=== PATIENT | male | born 1970 | race Caucasian/White ===

== ENCOUNTER 2017-08-07 21:26 | Emergency (ER) | payer OTHER ==
[~2017-08-07] VITALS: Ht 185.4 cm; Wt 88.5 kg
[~2017-08-07 21:26] MED LIST: ABILIFY 10 MG10 MG PO; ALPRAZOLAM0.5 M4 PO; ASPIRIN EC81 M1 PO; ATIVAN1 M1 PO; BENICAR HCT 12.1 TA2 PO; BENICAR40 M1 PO; GABAPENTIN300 M2 PO; LORAZEPAM0.5 M1 PO; NEXIUM 40MG40 MG PO; PANTOPRAZOLE SO40 M1 PO; SUBOXONE 8 MG-1 EACH; XANAX1 MG PO
[2017-08-07 22:52] VITALS: BP 128/86
== END 2017-08-07 23:00 | disposition admitted as inpatient to this hospital (09) ==
LOC: ERH 21:26
DX: R51 Headache (principal)

== ENCOUNTER 2017-08-25 11:13 | Emergency (ER) | payer OTHER ==
[~2017-08-25] VITALS: Ht 185.4 cm; Wt 90.7 kg
[2017-08-25 11:25] VITALS: BP 157/101
--- NOTE | 2017-08-25 12:20 | ED GENERAL ADULT ---
History of Present Illness General Chief Complaint: General Adult Stated Complaint: PT HAD A PANIC ATTACK Source: patient Exam Limitations: no limitations Vital Signs & Intake/Output Vital Signs & Intake/Output Vital Signs Date Time Temp Pulse Resp B/P B/P Pulse O2 O2 Flow FiO2 Mean Ox Delivery Rate 08/25 1321 99 Room Air 08/25 1125 97.2 81 20 157/101 99 Room Air Room Air Allergies Coded Allergies: moxifloxacin (From AVELOX) (HIVES 06/22/17) Reconcile Medications Alprazolam 0.5 MG TABLET 1 TAB PO BIDP PRN ANXIETY Alprazolam (Xanax) 0.5 MG TABLET 1 TAB PO Q8 ANXIETY Aspirin (Ecotrin*) 81 MG TABLET.DR 1 TAB PO DAILY HEART/BLOOD (Reported) Buprenorphine HCl/Naloxone HCl (Suboxone 8 MG-2 MG Sl Film) (Unknown Strength) FILM (Unknown Dose) UNKNOWN (Reported) Gabapentin 300 MG CAPSULE 2 CAP PO 4XDAILY ANXIETY (Reported) Lorazepam 0.5 MG TABLET 1 TAB PO TIDPRN PRN ANXIETY (Reported) Olmesartan Medoxomil (Benicar) 40 MG TABLET 1 TAB PO DAILY BP (Reported) Pantoprazole Sodium 40 MG TABLET.DR 1 TAB PO DAILY GI (Reported) Triage Note: PT REPORTS DIAGNOSIS OF PAINC DISORDER IN JUNE. REPORTS BEING UNABLE TO EAT OR SLEEP SINCE SUNDAY. DENIES SI/HI. PT CHIEF COMPLAINT IS DIFFICULTY URINATING. REPORTS HE CAN'T EMPTY HIS BLADDER AND FEELS A LOT OF PRESSURE. I Triage Nurses Notes Reviewed? yes Onset: Abrupt Duration: day(s): Timing: recent history HPI: 08/25/17 1 PM 47-year-old man presents to the emergency department for a panic attack. He says he has a history of panic attacks. He says he was doing good but he recently had some bad news. He denies any chest pain or shortness of breath. He does say he has a past medical history of hypertension. Past History Travel History Traveled to [place] past 21 day No Medical History Any Pertinent Medical History? see below for history Neurological: NONE EENT: NONE Cardiovascular: hypertension Respiratory: NONE Gastrointestinal: GERD Hepatic: NONE Renal: NONE Musculoskeletal: chronic back pain Psychiatric: anxiety, opioid dependence Endocrine: NONE History of MRSA: No History of VRE: No History of CDIFF: No Surgical History Surgical History: non-contributory Psychosocial History Services at Home None What is your primary language Turkish Tobacco Use: Never used Family History Hx Contributory? No Review of Systems Review of Systems Constitutional: Denies: fever. EENTM: Reports: no symptoms. Denies: double vision. Respiratory: Reports: no symptoms. Cardiovascular: Reports: no symptoms. GI: Reports: no symptoms. Genitourinary: Reports: no symptoms. Musculoskeletal: Reports: no symptoms. Skin: Reports: no symptoms. Neurological/Psychological: Reports: no symptoms. Hematologic/Endocrine: Reports: no symptoms. Immunologic/Allergic: Reports: no symptoms. Physical Exam Physical Exam General Appearance: well developed/nourished, alert, awake, anxious, mild distress Head: atraumatic, normal appearance Eyes: Bilateral: normal appearance, PERRL, EOMI. Ears, Nose, Throat: normal pharynx, normal ENT inspection Neck: normal inspection, supple, full range of motion Respiratory: normal breath sounds, chest non-tender, no respiratory distress Cardiovascular: regular rate/rhythm Peripheral Pulses: 4+ radial (R), 4+ radial (L) Gastrointestinal: soft, non-tender Back: normal range of motion Extremities: normal inspection, normal range of motion Neurologic/Psych: no motor/sensory deficits, awake, alert, oriented x 3 Skin: intact, normal color, warm/dry Core Measures ACS in differential dx? No CVA/TIA Diagnosis: No Sepsis Present: No Sepsis Focused Exam Completed? No Progress Differential Diagnoses I considered the following diagnoses in my evaluation of the patient: [anxiety, depression] Plan of Care: Current Medications Sig/Lucio Start time Last Medication Dose Stop Time Status Admin Alprazolam 0.5 MG ONCE ONE 08/25 1300 UNVr (Xanax) 08/25 1301 Initial ED EKG: none Departure Departure Disposition: STILL A PATIENT Condition: Stable Clinical Impression Primary Impression: Acute anxiety Referrals: Evaristo Serrano (PCP/Family) Departure Forms: Customer Survey General Discharge Information Prescriptions: Current Visit Scripts Alprazolam (Xanax) 1 TAB PO Q8 #6 TAB Critical Care Note Critical Care Note Critical Care Time: non-applicable
[2017-08-25] MEDS ORDERED: XANAX0.5 M1 PO (12:58)
== END 2017-08-25 13:43 ==
LOC: ERH 11:13
DX: F41.9 Anxiety disorder, unspecified (principal)

== ENCOUNTER 2017-08-26 13:24 | Emergency (ER) | payer OTHER ==
[~2017-08-26] VITALS: Ht 185.4 cm; Wt 88.5 kg
[~2017-08-26 13:24] MED LIST changes: +XANAX0.5 M1 PO
--- NOTE | 2017-08-26 14:40 | ED PSY CRISIS COLLATERAL NOTE ---
Collateral Note Collateral Note Family/Inform/Trevor Contacts: Spoke with pt's mother who was with him in the ED, Jeni Ramirez. She reported she did not know much. She did know that he was talking to a friend on facebook and he said "something", she did not know what, about his mental health to the friend and the friend was concerned enough to call the police and he came here. She acknowledged he was here yesterday, but she reported it was "for anxiety" and he sometimes comes to the emergency room for anxiety, they give him medication and he goes home. She stated that he has ongoing treatment when he is at home. Chidi was present on a stretcher in the hallway for this interview with his mother and stated he "could answer the questions better than his mother ". He was informed that we would inverview him soon, after his labs were taken and results came in (at the time of collateral interview with mom labs were in the process of being drawn by nursing). Mom stated she did not feel concerned for her son's safety if he was to be sent home.
--- NOTE | 2017-08-26 15:10 | ED GENERAL ADULT ---
History of Present Illness General Chief Complaint: Psychiatric Related Complaint Stated Complaint: BIBA +SI Source: patient, EMS Exam Limitations: no limitations Vital Signs & Intake/Output Vital Signs & Intake/Output Vital Signs Date Time Temp Pulse Resp B/P B/P Pulse O2 O2 Flow FiO2 Mean Ox Delivery Rate 08/27 0605 97.5 70 18 131/80 100 Room Air 08/27 0017 97.5 69 20 144/84 100 Room Air 08/26 2211 97.5 63 18 137/87 95 Room Air 08/26 2002 98.0 65 18 141/88 95 Room Air 08/26 1807 97.9 58 18 136/87 96 Room Air 08/26 1610 98.0 61 16 128/74 99 Room Air 08/26 1327 97.9 58 16 136/77 100 Room Air ED Intake and Output 08/27 0000 08/26 1200 Intake Total 240 Output Total Balance 240 Intake, Oral 240 Patient 195 lb Weight Weight Reported by Patient Measurement Method Allergies Coded Allergies: moxifloxacin (From AVELOX) (HIVES 06/22/17) Triage Note: PT BIBA FROM HOME ON PEER FOR +SI STATEMENTS MADE VIA TEXT TO FRIEND. UPON ARRIVAL PT AOX3, DENIES SI/HI, DENIES ETOH/DRUG USE. CALM AND COOPERATIVE. WAS SEEN FOR SIMILAR COMPLAINT YESTERDAY IN ER. Triage Nurses Notes Reviewed? yes Onset: Abrupt Duration: day(s): Timing: recent history HPI: 08/26/17 3:05 PM 47-year-old man presents to the emergency department complaining of depression with suicidal ideation. The patient states that he said some things earlier today that he shouldn't have. He essentially said he did not want to live anymore. Police were called and he was brought into the emergency department for evaluation. Currently he denies suicidal ideation. He does have a history of opioid abuse and panic disorder. (Raleigh Quinteros DO) Reconcile Medications Alprazolam 0.5 MG TABLET 1 TAB PO BIDP PRN ANXIETY Buprenorphine HCl/Naloxone HCl (Suboxone 8 MG-2 MG Sl Film) (Unknown Strength) FILM (Unknown Dose) UNKNOWN (Reported) Gabapentin 300 MG CAPSULE 2 CAP PO 4XDAILY ANXIETY (Reported) Lorazepam 0.5 MG TABLET 1 TAB PO TIDPRN PRN ANXIETY (Reported) Olmesartan Medoxomil (Benicar) 40 MG TABLET 1 TAB PO DAILY BP (Reported) Pantoprazole Sodium 40 MG TABLET.DR 1 TAB PO DAILY GI (Reported) Quetiapine Fumarate (Seroquel XR) 50 MG TAB.ER.24H 1 TAB PO QPM SLEEP ( Reported) (Negro CARLSON,Arnel) Past History Travel History Traveled to [place] past 21 day No Medical History Any Pertinent Medical History? see below for history Neurological: NONE EENT: NONE Cardiovascular: hypertension Respiratory: NONE Gastrointestinal: GERD Hepatic: NONE Renal: NONE Musculoskeletal: chronic back pain Psychiatric: anxiety, opioid dependence Endocrine: NONE History of MRSA: No History of VRE: No History of CDIFF: No Surgical History Surgical History: non-contributory Psychosocial History Services at Home None What is your primary language Ecuadorean Tobacco Use: Quit >30 days ago Family History Hx Contributory? No (Raleigh Quinteros DO) Review of Systems Review of Systems Constitutional: Denies: fever. EENTM: Reports: no symptoms. Respiratory: Reports: no symptoms. Cardiovascular: Reports: no symptoms. GI: Reports: no symptoms. Genitourinary: Reports: no symptoms. Musculoskeletal: Reports: back pain. Skin: Reports: no symptoms. Neurological/Psychological: Reports: anxiety, depressed. Hematologic/Endocrine: Reports: no symptoms. (Raleigh Quinteros DO) Physical Exam Physical Exam General Appearance: well developed/nourished, alert, awake, anxious Head: atraumatic, normal appearance Eyes: Bilateral: normal appearance, PERRL, EOMI. Ears, Nose, Throat: normal pharynx, normal ENT inspection Neck: normal inspection, supple, full range of motion Respiratory: normal breath sounds, chest non-tender, no respiratory distress Cardiovascular: regular rate/rhythm Gastrointestinal: soft, non-tender Back: normal range of motion Extremities: no edema Neurologic/Psych: no motor/sensory deficits, awake, alert, oriented x 3, depressed affect Skin: intact, normal color, warm/dry Core Measures ACS in differential dx? No CVA/TIA Diagnosis: No Sepsis Present: No Sepsis Focused Exam Completed? No (Raleigh Quinteros DO) Progress Differential Diagnoses I considered the following diagnoses in my evaluation of the patient: [ Depression, substance abuse, suicidal ideation] Plan of Care: Orders Procedure Date/time Status Continuous Observation Monitor 08/27 1900 Active Continuous Observation Monitor 08/27 1500 Active Continuous Observation Monitor 08/27 1100 Active Continuous Observation Monitor 08/27 0700 Active Heart Healthy Diet 08/26 D Active Continuous Observation Monitor 08/26 1358 Active URINE DRUG SCREEN FOR ER ONLY 08/26 1358 Complete ETHANOL 08/26 1358 Complete COMPREHENSIVE METABOLIC PANEL 08/26 1358 Complete CBC WITHOUT DIFFERENTIAL 08/26 1358 Complete ED CRISIS PSYCH CONSULT 08/26 1358 Active Current Medications Sig/Lucio Start time Last Medication Dose Stop Time Status Admin Losartan Potassium 100 MG DAILY 08/27 1000 UNVr (Cozaar) Alprazolam 0.5 MG .[BIDP] PRN 08/27 0915 UNVr (Xanax) 09/03 0914 Gabapentin 600 MG .[4XDAILY] 08/27 0915 UNVr (Neurontin) Laboratory Tests 08/26/17 1548: Urine Opiates Screen < 100.00, Methadone Screen 56, Barbiturate Screen < 60, Ur Phencyclidine Scrn < 6.00, Amphetamines Screen < 100, U Benzodiazepines Scrn > 800 H, Urine Cocaine Screen < 50, Urine Cannabis Screen < 5.00 08/26/17 1459: Anion Gap 11, Estimated GFR > 60, BUN/Creatinine Ratio 16.7, Glucose 93, Calcium 10.9 H, Total Bilirubin 0.4, AST 17, ALT 32, Alkaline Phosphatase 79, Total Protein 7.0, Albumin 4.2, Globulin 2.8, Albumin/Globulin Ratio 1.5, CBC w Diff NO MAN DIFF REQ, RBC 5.13, MCV 87.6, MCH 28.4, MCHC 32.4 L, RDW 14.1, MPV 7.1 L, Gran % 77.3 H, Lymphocytes % 15.9 L, Monocytes % 4.7, Eosinophils % 1.9, Basophils % 0.2, Absolute Granulocytes 8.4 H, Absolute Lymphocytes 1.7, Absolute Monocytes 0.5, Absolute Eosinophils 0.2, Absolute Basophils 0, Serum Alcohol < 10.0 Initial ED EKG: none (Raleigh Quinteros DO) Hand-Off Endorsed To: Arnel Tom MD Endorsed Time: 0700 Pending: consult (RE-EVAL) (Ming CARLSON,Tomas Kraus) Departure Departure Condition: Stable Clinical Impression Primary Impression: Depression Referrals: Ad BLOCK,Evaristo Charles (PCP/Family) Departure Forms: Customer Survey General Discharge Information Comments 08/26/17 3 pm He is pending disposition by crisis. He will be signed out to Dr. Lai at 7 PM. (Raleigh Quinteros DO) Departure Time of Disposition: 1001 Disposition: HOME OR SELF CARE Additional Instructions: Follow up with the recommendations of the poultry husbandry worker. (Negro CARLSON,Arnel) Critical Care Note Critical Care Note Critical Care Time: 30-74 min (Raleigh Quinteros DO)
[2017-08-26 15:30] LABS: ABSOLUTE BASOPHIL COUNT 0 /CUMM (0.0-0.2); ABSOLUTE EOSINOPHIL COUNT 0.2 /CUMM (0.0-0.7); ABSOLUTE GRANULOCYTE CT 8.4 /CUMM (1.4-6.5); ABSOLUTE LYMPH COUNT 1.7 /CUMM (1.2-3.4); ABSOLUTE MONOCYTE COUNT 0.5 /CUMM (0.10-0.60); BASOPHIL % 0.2 % (0.0-2.0); EOSINOPHIL % 1.9 % (0-5); GRANULOCYTE % 77.3 % (42.2-75.2); HEMATOCRIT 44.9 % (42-52); MEAN CORPUSCULAR HGB 28.4 PG (27.0-31.0); MEAN CORPUSCULAR HGB CONC 32.4 G/DL (33.0-37.0); MEAN CORPUSCULAR VOLUME 87.6 FL (80.0-94.0); MEAN PLATELET VOLUME 7.1 FL (7.4-10.4); PLATELET COUNT 415 /CUMM (130-400); RBC DISTRIBUTION WIDTH 14.1 % (11.5-14.5); RED BLOOD CELL CT 5.13 /CUMM (4.70-6.10); WHITE BLOOD CELL COUNT 10.9 /CUMM (4.8-10.8)
--- NOTE | 2017-08-26 17:36 | ED PSYCH CRISIS CONSULTATION ---
Crisis Consult Basic Assessment Date of Consult: 08/26/17 Responsible Person/Accompanied By: GABBY/PEER Insurance Authorization: Insurance #1: Insurance name: SANDY RONQUILLO Phone number: Policy number: [id number] Group number: Authorization number: ED Provider: Patient's ED Provider: Raleigh Quinteros DO Primary Care Physician: Patient's PCP: Evaristo Serrano PCP's Current Psychiatrist: [facility] Chief Complaint: Psychiatric Related Complaint Patient's Quote: "suffering from bad anxiety" Present Illness: Pt is a 47 year old male arriving to ER on a PEER, due to making suicidal comments to a friend over the phone. This friend "Tomas" lives in [place], he called the police. According to the peer, Chidi text his friend Tomas " just let me in peace, because there will never be a life of peace for me. seems like the right time to do this, I don't want to be alive anymore". When he is evaluated this evening, he states "I told my friend something and he over reacted, I said something like I'm at my wits end". Pt has poor eye contact , he reports he was in the ER yesterday for panic, "this is new", he states in regards to panic like symptoms. He is currently denying si/hi/ah/vh. He has a hx of substance abuse, specifically abusing xanax, heroin and etoh. Currently pt is prescribed suboxone "I went from 16mg to 2mg, my prescriber wouldn't keep me on benzos while I was on Suboxone, so I decided the benzos are more necessary at this time". He is also prescribed Buspar. Tox screen positive for Benzos. Pt states he has a lot going on in his life, he moved in with his parents last month, because him and his are , he also mentions living with pain. Pt is not all that cooperative, he is irritable. He reports he attends [facility] to see an PATIENT INFORMATION COORDINATOR and goes to [facility] in [place] for suboxone group. 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 Patient's Address: [address] [place] [address] Other Phone Number: Who Do You Live With? Family Family/Informants Interviewed: see note Allergies - Coded Allergies: moxifloxacin (From AVELOX) (HIVES 06/22/17) Laboratory Results: Laboratory Tests 08/26/17 1548: Urine Opiates Screen < 100.00, Methadone Screen 56, Barbiturate Screen < 60, Ur Phencyclidine Scrn < 6.00, Amphetamines Screen < 100, U Benzodiazepines Scrn > 800 H, Urine Cocaine Screen < 50, Urine Cannabis Screen < 5.00 08/26/17 1459: Anion Gap 11, Estimated GFR > 60, BUN/Creatinine Ratio 16.7, Glucose 93, Calcium 10.9 H, Total Bilirubin 0.4, AST 17, ALT 32, Alkaline Phosphatase 79, Total Protein 7.0, Albumin 4.2, Globulin 2.8, Albumin/Globulin Ratio 1.5, CBC w Diff NO MAN DIFF REQ, RBC 5.13, MCV 87.6, MCH 28.4, MCHC 32.4 L, RDW 14.1, MPV 7.1 L, Gran % 77.3 H, Lymphocytes % 15.9 L, Monocytes % 4.7, Eosinophils % 1.9, Basophils % 0.2, Absolute Granulocytes 8.4 H, Absolute Lymphocytes 1.7, Absolute Monocytes 0.5, Absolute Eosinophils 0.2, Absolute Basophils 0, Serum Alcohol < 10.0 (Mariia PALOMARES,Amber) Current Medications - Scheduled Medications Gabapentin 300 MG CAPSULE 2 CAP PO 4XDAILY ANXIETY #180 (Reported) Entered as Reported by Ania Cole on 06/22/172051 Olmesartan Medoxomil (Benicar) 40 MG TABLET 1 TAB PO DAILY BP (Reported) Entered as Reported by Ania Cole on 06/22/172051 Pantoprazole Sodium 40 MG TABLET.DR 1 TAB PO DAILY GI #60 (Reported) Entered as Reported by Ania Cole on 06/22/172052 Quetiapine Fumarate (Seroquel XR) 50 MG TAB.ER.24H 1 TAB PO QPM SLEEP #30 ( Reported) Entered as Reported by Choco Hoover on 08/27/17 0751 Scheduled PRN Medications Alprazolam 0.5 MG TABLET 1 TAB PO BIDP PRN ANXIETY #8 TAB Prescribed by Raleigh Monte [place] on 06/23/17 Lorazepam 0.5 MG TABLET 1 TAB PO TIDPRN PRN ANXIETY #90 (Reported) Entered as Reported by Ania Cole on 06/22/172053 Miscellaneous Medications Buprenorphine HCl/Naloxone HCl (Suboxone 8 MG-2 MG Sl Film) (Unknown Strength) FILM (Unknown Dose) UNKNOWN #16 (Reported) Entered as Reported by Ania Cole on 06/22/172052 (Frank PALOMARES,Bruna) Past History Past Medical History Neurological: NONE EENT: NONE Cardiovascular: hypertension Respiratory: NONE Gastrointestinal: GERD Hepatic: NONE Renal: NONE Musculoskeletal: chronic back pain Psychiatric: anxiety, opioid dependence Endocrine: NONE Past Surgical History Surgical History: non-contributory Psychosocial History Strengths/Capabilities: In outpatient treatment Has family and friend supports Psychiatric Treatment History Psych Treatment Psychiatric Treatment Yes Inpatient Treatment No Outpatient Treatment Yes Location of Treatment [facility] and [facility] Reason for Treatment drug and mental health treatment Dates of Treatment currently Response to Treatment "i went from 16mg to 2mg of suboxone" Diagnosis by History: MDD recurrent moderate F33.1 Unspecified Anxiety F41.9 Hx of alcohol dependence and withdrawal. Sedative dependence. Opioid dependence. Cocaine abuse. Substance Use/Abuse History Drug Use/Abuse Substances Used/Abused Yes Substance Used/Abused Benzodiazepines First Use 43 Last Used today How much used/taken "3mg" How often daily, although I am tapering off For how long 4 years Route of use oral Substance Abuse Treatment Substance Abuse Treatment Past Substance Abuse TX Yes Inpatient Treatment Yes Outpatient Treatment Yes Location of Treatment [facility] and current outpatient providers Reason for Treatment opiate, benzo and etoh abuse/dependence Dates of Treatment 2013 and previously Response to Treatment unknown (Mariia PALOMARES,Amber) Current Mental Status Mental Status Orientation: Person, Place, Situation Affect: Anxious, Flat, Variable Speech: WNL Neuro-vegetative: Concentration Poor, Helpless, Loss of Interest, Sleep Disturbance Appearance Appearance- Dress/Hygiene: slightly unkempt Behaviors Thought Process: Flight of Ideas Thought Content: Grandiose Memory: WNL Insight: Poor SI/HI Risk Assessment Past Suicidal Ideation/Attempts Yes Current Suicidal Ideation/Att No Past Homicidal Ideation/Att: No Current Homicidal Ideation/Attempts No Degree of Intent: States Intent Danger To: Self Gravely Disabled: Poor Judgment Risk Factors: chronic/serious med cond., high anxiety/distress, substance abuse, poor impulse control, limited support Lethality Ratin PTSD Checklist PTSD Done? patient declined ED Management Sitter: Yes Restraints: No (Amber Chiang LCSW) DSM5/PS Stressors/Medical Prob Diagnosis' (DSM 5, Stressors, Medical): MDD recurrent moderate F33.1 Unspecified Anxiety F41.9 Hx of alcohol dependence and withdrawal. Sedative dependence. Opioid dependence. Cocaine abuse. pain management issues Current GAF: 32 (Amber Chiang LCSW) Departure Disposition Psych Medical Clearance Date: 08/26/17 Medically Cleared at: 1630 Time Started: 1630 Time Ended: 1729 Psychiatrist Consulted: Date Disposition Established: 08/26/17 Time Disposition Established: 1729 Rationale for Disposition: recommends holding over due to PEER, and re evaluate in the morning. At this time pt denies si/hi/ah/vh, is presenting with anxiety, however, the PEER indicates he made si comments. If deemed appropriate for discharge he has outpatient appointments in the morning at 11 at [facility] with his PATIENT INFORMATION COORDINATOR, and a group at [facility] in [place] at 12:30p (suboxone program) Referrals Ad AGUILARMANAN,Evaristo Charles (PCP/Family) (Amber Chiang LCSW) Addendum Addendum 08/27/17: Crisis met with pt for re-evaluation this morning. Pt reports he didnt sleep well as it was not very comfortable to be in the hallway. Pt denies SI this morning. He said the friend that called the [place] state police last night lives in [place] and he only speaks to approximately 1x year. He said he make some stupid comments. Pt describes his anxiety as horrible this morning. He is concerned about meeting with his information systems security officer at 9 a.m.; his therapist at 11:00 a.m. and his suboxone prescriber at 12:30 p.m. Crisis informed pt that he could be given a letter for his information systems security officer since he will not be discharged before 9:00 a.m. today. Patients anxiety about his appointments this morning indicates he is future oriented. Pt reports he was recently diagnosed with Panic Disorder which he attributes to his marital problems, not to the fact that he is tapering himself off his suboxone. Pt shared he is on probation for threatening in the 2nd degree and Breach of Peace. He provided his probation officers name: Gian Medrano in order for crisis to write a letter for pt explaining he was in the ED since 08/26/17. Crisis spoke to Chris Avalos APRN ([phone]). Karinaraina reported she has only seen patient 2x (08/03/17 & 08/08/17). She is currently prescribing Seroquel 50 mg at night, Buspar 15 mg 2x/day and Vistaril 50 3x/day. She is targeting his racing thoughts at night with medication in order to help him sleep better as he reports he struggles to sleep at night due to racing thoughts. She states that he starting seeing therapist, Ryan on 07/30/17. Neither her nor Ryan' notes indicate concerns regarding SI. She believes maybe he could have transient SI thoughts due to "break up" with his but he has not disclosed any plan to commit suicide. She is comfotable taking him back into treatment. He has a medication management appointment tomorrow 08/27/17 @ 2pm and a therapy appointment today at 11:00 a.m. She is in communication with the pt's PCP and suboxone program. She believes pt is at risk for being let go from the suboxone program because he has had cocaine in his urine this month. Informed Chris bowser' s utox was negative for substances excluding benzodiazepams. She reports no one prescribes these for him and she diana not prescribe them for him as he has a substance abuse history. We discussed adding an IOP program to pt's treatment regimine however, Chris he report she doesn't like groups but if he will do it , she supports it. Crisis consulted with Dr. Luna. Dr. Luna requested to learn if the pt has guns in the home and if the pt has had any previous suicide attempts. Pt has not had any suicide attempts and there are no guns in the home that he lives in with his parents. Pt to discharge to current treaters: Ryan (therapist) from [facility] (appt today at 11:00), [facility] -suboxone program today at 12:30 and Sanna Avalos APRN tomorrow 08/28/17 @ 2:00 p.m. Pt was also provided a letter for his information systems security officer stating he was in the ED yesterday afternoon through today ( copy to pt records). (Frank PALOMARES,Bruna)
[2017-08-27] MEDS ORDERED: SEROQUEL XR50 M1 PO (07:51)
--- NOTE | 2017-08-27 09:25 | ED PSY CRISIS COLLATERAL NOTE ---
Collateral Note Collateral Note Family/Inform/Trevor Contacts: Crisis spoke to Chris AvalosTATO ([phone]). Chris reported she has only seen patient 2x (08/03/17 & 08/08/17). She is currently prescribing Seroquel 50 mg at night, Buspar 15 mg 2x/day and Vistaril 50 3x/day. She is targeting his racing thoughts at night with medication in order to help him sleep better as he reports he struggles to sleep at night due to racing thoughts. She states that he starting seeing therapist, Ryan on 07/30/17. Neither her nor Ryan' notes indicate concerns regarding SI. She believes maybe he could have transient SI thoughts due to "break up" with his but he has not disclosed any plan to commit suicide. She is comfotable taking him back into treatment. He has a medication management appointment tomorrow 08/27/17 @ 2pm and a therapy appointment today at 11:00 a.m. She is in communication with the pt's PCP and suboxone program. She believes pt is at risk for being let go from the suboxone program because he has had cocaine in his urine this month. Informed Chris pt' s utox was negative for substances excluding benzodiazepams. She reports no one prescribes these for him and she diana not prescribe them for him as he has a substance abuse history. We discussed adding an IOP program to pt's treatment regimine however, Chris he report she doesn't like groups but if he will do it , she supports it.
[2017-08-27 10:24] VITALS: BP 136/87
== END 2017-08-27 10:27 ==
LOC: ERH 13:24
PROVIDERS: Emergency Medicine
DX: F32.9 Major depressive disorder, single episode, unspecified (principal); F11.10 Opioid abuse, uncomplicated
CPT/HCPCS: 80307; G0463; G0480

== ENCOUNTER 2017-09-09 13:23 | Inpatient (IN) | payer OTHER ==
[~2017-09-09] VITALS: Ht 182.9 cm; Wt 84.4 kg
[~2017-09-09 13:23] MED LIST changes: +SEROQUEL XR50 M1 PO
--- NOTE | 2017-09-09 13:45 | ED PSYCHIATRIC COMPLAINT ---
See Addendum History of Present Illness General Chief Complaint: Psychiatric Related Complaint Stated Complaint: +SI Source: patient, old records, EMS, police Exam Limitations: no limitations Vital Signs & Intake/Output Vital Signs & Intake/Output Vital Signs Date Time Temp Pulse Resp B/P B/P Pulse O2 O2 Flow FiO2 Mean Ox Delivery Rate 09/12 2240 98.5 73 132/78 09/12 2004 98.5 73 132/78 09/12 1610 60 145/78 09/12 1607 60 145/78 09/12 1227 68 139/79 09/12 1157 68 139/79 09/12 0841 53 138/76 09/12 0752 97.7 53 138/76 09/12 0750 97.7 53 138/76 Allergies Coded Allergies: moxifloxacin (From AVELOX) (HIVES 06/22/17) Reconcile Medications Alprazolam 0.5 MG TABLET 1 TAB PO BIDP PRN ANXIETY Buprenorphine HCl/Naloxone HCl (Suboxone 8 MG-2 MG Sl Film) (Unknown Strength) FILM (Unknown Dose) UNKNOWN (Reported) Gabapentin 300 MG CAPSULE 2 CAP PO 4XDAILY ANXIETY (Reported) Lorazepam 0.5 MG TABLET 1 TAB PO TIDPRN PRN ANXIETY (Reported) Olmesartan Medoxomil (Benicar) 40 MG TABLET 1 TAB PO DAILY BP (Reported) Pantoprazole Sodium 40 MG TABLET.DR 1 TAB PO DAILY GI (Reported) Quetiapine Fumarate (Seroquel XR) 50 MG TAB.ER.24H 1 TAB PO QPM SLEEP ( Reported) Triage Nurses Notes Reviewed? yes HPI: Patient brought in on a police paper for suicidal ideations. Patient told EMS that he has plans to hang himself and a rope was found in his car. Patient is going through a divorce and he states that his keeps: The police on him and he keeps getting arrested. Patient states that he never later finger on her and has not been harassing her but the police believe her and not him. Patient denies any homicidal ideations. During the interview patient was. Tearful and then just started repeating again and again that he just wants to just wants to . Patient then ran out of his room. An order #7 was called and the patient was escorted back to his room and he required chemical as well as mechanical restraints. (Ming CALRSON,Tomas Kraus) Past History Travel History Traveled to [place] past 21 day No Medical History Any Pertinent Medical History? see below for history Neurological: NONE EENT: NONE Cardiovascular: hypertension Respiratory: NONE Gastrointestinal: GERD Hepatic: NONE Renal: NONE Musculoskeletal: chronic back pain Psychiatric: anxiety, opioid dependence Endocrine: "BEING WORKED UP FOR HYPERPARATHYROIDISM" History of MRSA: No History of VRE: No History of CDIFF: No Surgical History Surgical History: non-contributory Psychosocial History Who do you live with Family Services at Home None What is your primary language Turkmen Family History Hx Contributory? No (Ming CARLSON,Tomas Kraus) Review of Systems Review of Systems Constitutional: Reports: no symptoms. EENTM: Reports: no symptoms. Respiratory: Reports: no symptoms. Cardiovascular: Reports: no symptoms. GI: Reports: no symptoms. Genitourinary: Reports: no symptoms. Musculoskeletal: Reports: no symptoms. Skin: Reports: no symptoms. Neurological/Psychological: Reports: see HPI, depressed. Hematologic/Endocrine: Reports: no symptoms. Immunologic/Allergic: Reports: no symptoms. All Other Systems: Reviewed and Negative (Ming CARLSON,Tomas Kraus) Physical Exam Physical Exam General Appearance: well developed/nourished, alert, awake, moderate distress Head: atraumatic, normal appearance Eyes: Bilateral: PERRL, EOMI. Ears, Nose, Throat: normal pharynx, normal ENT inspection, hearing grossly normal Neck: normal inspection, supple, full range of motion Respiratory: normal breath sounds, chest non-tender, no respiratory distress, lungs clear Cardiovascular: regular rate/rhythm, normal peripheral pulses Gastrointestinal: normal bowel sounds, soft, non-tender Extremities: normal range of motion Neurological/Psychiatric: no motor/sensory deficits, awake, agitated, alert, oriented x 3 Appearance/Memory/Insight: appropriate appearance, appropriate insight Behavoir/Eye Contact/Speech: uncooperative, TEARFULL Thoughts/Hallucinations: normal thought pattern, no apparent hallucination Skin: intact, normal color, warm/dry SAD PERSONS Done? CRISIS CONSULT OBTAINED (Ming CARLSON,Tomas Kraus) Progress Differential Diagnosis: drug intoxication, drug overdose, drug withdrawal, electrolyte abnormality Plan of Care: Orders Procedure Date/time Status VALPROIC ACID 09/15 0600 Active AMYLASE 09/12 0615 Complete SUB HSP (15 MIN) 09/12 UNK Complete Lab Add-on Test 09/12 UNK Active MISSING MEDICATION FORM 09/12 UNK Active Current Medications Sig/Lucio Start time Last Medication Dose Stop Time Status Admin Aripiprazole 2 MG DAILY@0800 09/13 0800 AC (Abilify) Aripiprazole 5 MG DAILY@0800 09/13 0800 AC (Abilify) Trazodone HCl 50 MG AT BEDTIME NEED.. 09/12 2359 AC 09/13 (Desyrel) 0000 Divalproex Sodium 500 MG AT BEDTIME 09/12 2200 AC 09/12 (Depakote) 2138 Gabapentin 600 MG FOUR TIMES A DAY 09/12 1400 AC 09/12 (Neurontin) 2139 Divalproex Sodium 250 MG 0800 09/12 1300 AC 09/12 (Depakote) 1337 Diphenhydramine HCl 50 MG AT BEDTIME 09/11 2200 AC 09/12 (Benadryl) 2138 Diphenhydramine HCl 50 MG Q6P PRN 09/11 0915 AC 09/12 (Benadryl) 2249 Omeprazole 20 MG DAILY AC 09/11 0700 AC 09/12 (Prilosec) 0612 Lorazepam 2 MG Q2P PRN 09/10 1330 AC (Ativan) Lorazepam 1 MG Q2P PRN 09/10 1330 AC (Ativan) Multivitamins 1 TAB DAILY@0800 09/10 1330 AC 09/12 (Theragran Vitamins) 0841 Acetaminophen 650 MG Q6P PRN 09/10 1315 AC (Tylenol) Al Hydroxide/Mg 30 ML Q4-6 PRN PRN 09/10 1315 AC Hydroxide (Maalox Plus) Benztropine Mesylate 1 MG Q6P PRN 09/10 1315 AC 09/11 (Cogentin 1 MG 0732 Tablet) Benztropine Mesylate 1 MG Q6P PRN 09/10 1315 AC (Cogentin) Buprenorphine/ 1 TAB BID 09/10 1315 AC 09/12 Naloxone 213 (Suboxone) Gabapentin 300 MG Q6P PRN 09/10 1315 AC 09/10 (Neurontin) 2004 Haloperidol 5 MG Q6P PRN 09/10 1315 AC 09/11 (Haldol) 0733 Haloperidol 5 MG Q6P PRN 09/10 1315 AC (Haldol) Lorazepam 2 MG Q6P PRN 09/10 1315 AC (Ativan) Magnesium Hydroxide 30 ML AT BEDTIME PRN 09/10 1315 AC (Milk Of Magnesia) Losartan Potassium 100 MG DAILY 09/10 1000 AC 09/12 (Cozaar) 0841 Laboratory Tests 09/12/17 0615: Anion Gap 11, Estimated GFR > 60, BUN/Creatinine Ratio 16.3, Calcium 11.1 H, Albumin 4.3, Amylase 53, 25-OH Vitamin D Total 19.4 L, PTH Intact 77.1 09/12/17 0615: Ionized Calcium Pending, Vit D 1,25-Dihyd Total Pending, 1,25 Dihydroxy Vit D2 Pending, 1,25 Dihydroxy Vit D3 Pending Hand-Off Endorsed To: Raleigh Monte MD Endorsed Time: 1899 Pending: consult (Tomas Lai MD) Comments: 09/09/2017 7:33:30 PM patient signed out to me by Dr. 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 09/10/2017 7:00:14 AM patient signed out to Dr. 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 (Raleigh Monte MD) Hand-Off Endorsed To: Tomas Lai MD Endorsed Time: 1899 Pending: consult (CRISIS) (Jyotsna CARLSON,Abida) Departure Departure Disposition: STILL A PATIENT Condition: Stable Clinical Impression Primary Impression: Suicidal ideations Referrals: Ad BLOCK,Evaristo Charles (PCP/Family) Departure Forms: Customer Survey General Discharge Information (Tomas Lai MD) Departure Comments 09/10/17 9 AM The patient was signed out to me by Dr. Monte at 7 AM. He is pending a bed search by crisis. He will be signed out to Dr. Goyal at 11 AM. He was comfortable on my evaluation. His Suboxone was ordered. (Raleigh Quinteros DO) Critical Care Note Critical Care Note Critical Care Time: mins: (120 MIN) (Tomas Lai MD)
[2017-09-09 14:12] LABS: ABSOLUTE BASOPHIL COUNT 0.1 /CUMM (0.0-0.2); ABSOLUTE EOSINOPHIL COUNT 0.1 /CUMM (0.0-0.7); ABSOLUTE GRANULOCYTE CT 8.7 /CUMM (1.4-6.5); ABSOLUTE LYMPH COUNT 1.9 /CUMM (1.2-3.4); ABSOLUTE MONOCYTE COUNT 0.4 /CUMM (0.10-0.60); BASOPHIL % 0.5 % (0.0-2.0); EOSINOPHIL % 0.6 % (0-5); GRANULOCYTE % 78.6 % (42.2-75.2); HEMATOCRIT 45.9 % (42-52); MEAN CORPUSCULAR HGB CONC 33.1 G/DL (33.0-37.0); MEAN CORPUSCULAR VOLUME 87.7 FL (80.0-94.0); MEAN PLATELET VOLUME 6.5 FL (7.4-10.4); PLATELET COUNT 415 /CUMM (130-400); RBC DISTRIBUTION WIDTH 14.2 % (11.5-14.5); RED BLOOD CELL CT 5.24 /CUMM (4.70-6.10); WHITE BLOOD CELL COUNT 11.1 /CUMM (4.8-10.8)
--- NOTE | 2017-09-09 17:12 | ED PSY CRISIS COLLATERAL NOTE ---
Collateral Note Collateral Note Family/Inform/Trevor Contacts: Crisis spoke with Pt's father Chidi Ramirez . Father reports that pt has been sober for 6 months and this is progress. However, pt hsa been increasingly depressed due to the pending divorce and today he was going to end his life. He made a noose with a rope and posted it of face book. He has been staying with his parents as he is no longer living with his . Father expresses that it has been very stressful for all of them, he is not sure how much longer they will be able to allow him to stay with them. Father has not yet expressed this to pt and plans to speak with a therapist for coping and guidance 1st. Father informs that pt is supposed to be in court in [place] for Breach of peace. Father is concerned for his son's safety and does not think he should be discharged.
--- NOTE | 2017-09-10 08:20 | ED PSYCH CRISIS CONSULTATION ---
Crisis Consult Basic Assessment Date of Consult: 09/10/17 Responsible Person/Accompanied By: self/biba Insurance Authorization: Insurance #1: Insurance name: SANDY RONQUILLO Phone number: Policy number: [id number]. Group number: Authorization number: ED Provider: Patient's ED Provider: Raleigh Quinteros DO Primary Care Physician: Patient's PCP: Evaristo Serrano PCP's Current Psychiatrist: Sanna Castillo BARREL RAISER [phone] Chief Complaint: Psychiatric Related Complaint Patient's Quote: I was going to hang myself Present Illness: Pt is a 47 yo male biba early yesterday afternoon to [facility] ED on a [facility] PE[facility]. Document notes pt called 911 and stated he was driving around with a rope in his car and wanted to kill himself. Pt BAL was 164 and urine tox screen was positive for cocaine. Pt reports a few months of recent sobriety prior to relapse yesterday using cocaine and drinking a 1/2 pint of vodka. Pt reports his SI and relapse was triggered by confrontation with his yesterday at the grocery store. Pt reports they have been since Decemeber but have remained amicable and intimate. He reports running in to her at the store and she informed him she was seeing someone else and they she wanted a divorce. Pt reports he became agitated and resulted in police being called and he was charged with Breach of Peace. Pt reports current receiving outpatient therapy at [facility] in [place] and is prescribed Buspar, Atarax and Seroquel which he recently stopped on his own. Pt reports a hx of polysubstance abuse for etoh, cocaine, benzos and opiates and is prescribed Suboxone 2mg TID by [facility] in [place]. CSSRS administered. Pt reports prior detoxes at [facility] in 2006 and 2013 and detox 2009 at [facility] [place]. Pt reports no previous suicide attempts but has had recent SI. Pt states yesterday plan and intent to kill himself. Pt reporting feelings of hopelessness, helplessness, and depression as well as anxiety and recent panic attacks. Pt reports difficulty sleeping and poor appetite. Pt reports protective factors of identifying reasons for living and supportive family. Pt presents as depressed, calm, cooperative OX3 with poor eye contact. Pt denies HI; AH; VH and denies access to guns. Case reviewed with Dr Luna with recommendation for inpatient psychiatric treatment. Pt is in agreement with plan and has signed in voluntarily for admission to [facility]. Patient's Address: [place] [address] Other Phone Number: Who Do You Live With? Family (parents) Family/Informants Interviewed: collateral provided by pt father Chidi Ramirez III [phone]. see note Allergies - Coded Allergies: moxifloxacin (From AVELOX) (HIVES 06/22/17) Current Medications - Scheduled Medications Gabapentin 300 MG CAPSULE 2 CAP PO 4XDAILY ANXIETY #180 (Reported) Entered as Reported by Ania Cole on 06/22/172051 Olmesartan Medoxomil (Benicar) 40 MG TABLET 1 TAB PO DAILY BP (Reported) Entered as Reported by Ania Cole on 06/22/172051 Pantoprazole Sodium 40 MG TABLET.DR 1 TAB PO DAILY GI #60 (Reported) Entered as Reported by Ania Cole on 06/22/172052 Quetiapine Fumarate (Seroquel XR) 50 MG TAB.ER.24H 1 TAB PO QPM SLEEP #30 ( Reported) Entered as Reported by Choco Hoover on 08/27/17 0751 Scheduled PRN Medications Alprazolam 0.5 MG TABLET 1 TAB PO BIDP PRN ANXIETY #8 TAB Prescribed by Raleigh Monte MD on 06/23/17 Lorazepam 0.5 MG TABLET 1 TAB PO TIDPRN PRN ANXIETY #90 (Reported) Entered as Reported by Ania Cole on 06/22/172053 Miscellaneous Medications Buprenorphine HCl/Naloxone HCl (Suboxone 8 MG-2 MG Sl Film) (Unknown Strength) FILM (Unknown Dose) UNKNOWN #16 (Reported) Entered as Reported by Ania Cole on 06/22/172052 Laboratory Results: Laboratory Tests 09/09/179: Urine Opiates Screen 136, Methadone Screen 81, Barbiturate Screen < 60, Ur Phencyclidine Scrn < 6.00, Amphetamines Screen < 100, U Benzodiazepines Scrn < 85, Urine Cocaine Screen > 1000 H, Urine Cannabis Screen < 5.00 09/09/17 1406: Anion Gap 14, Estimated GFR > 60, BUN/Creatinine Ratio 16.7, Glucose 99, Calcium 11.5 H, Total Bilirubin 0.4, AST 17, ALT 22, Alkaline Phosphatase 83, Total Protein 7.7, Albumin 4.8, Globulin 2.9, Albumin/Globulin Ratio 1.7, CBC w Diff NO MAN DIFF REQ, RBC 5.24, MCV 87.7, MCH 29.0, MCHC 33.1, RDW 14.2, MPV 6.5 L, Gran % 78.6 H, Lymphocytes % 16.6 L, Monocytes % 3.7, Eosinophils % 0.6, Basophils % 0.5, Absolute Granulocytes 8.7 H, Absolute Lymphocytes 1.9, Absolute Monocytes 0.4, Absolute Eosinophils 0.1, Absolute Basophils 0.1, Serum Alcohol 164.0 Past History Past Medical History Neurological: NONE EENT: NONE Cardiovascular: hypertension Respiratory: NONE Gastrointestinal: GERD Hepatic: NONE Renal: NONE Musculoskeletal: chronic back pain Psychiatric: anxiety, opioid dependence Endocrine: "BEING WORKED UP FOR HYPERPARATHYROIDISM" Past Surgical History Surgical History: non-contributory Psychosocial History Strengths/Capabilities: In outpatient treatment Has family and friend supports Psychiatric Treatment History Psych Treatment Psychiatric Treatment Yes Inpatient Treatment Yes Outpatient Treatment Yes Location of Treatment [facility]; [facility] Reason for Treatment polysubstance abuse depression anxiety Dates of Treatment [facility] 2006, 2013. Current outpatient at [facility] Response to Treatment continue attempts at recovery/recent relapse. Recent SI. Recent Panic attack Diagnosis by History: MDD recurrent moderate F33.1 Unspecified Anxiety F41.9 Hx of alcohol dependence and withdrawal. Sedative dependence. Opioid dependence. Cocaine abuse. Substance Use/Abuse History Drug Use/Abuse 1 Substances Used/Abused Yes Substance Used/Abused Alcohol Last Used yesterday How much used/taken 1/2 pint of vodka How often reports first use sine May 2017 Drug Use/Abuse 2 Substances Used/Abused Yes Substance Used/Abused Prescribed Opiates (suboxone) Last Used yesterday How much used/taken 2 mg TID Substance Abuse Treatment Substance Abuse Treatment Past Substance Abuse [place] Yes Inpatient Treatment Yes Outpatient Treatment Yes Location of Treatment [facility] (2006,2013), [facility] (2009) [facility] Reason for Treatment etoh, heroin, benzo, cocaine use Dates of Treatment chronic since Response to Treatment pt continues to relapse Comments: pt reports etoh relapse yesterday after 4 months sober. Pt reports cocaine use yesterday. Last use Jul 2017. Pt prescribed suboxone 2mg TID Current Mental Status Mental Status Orientation: Person, Place, Situation Affect: Anxious, Depressed Speech: WNL Neuro-vegetative: Anhedonia, Energy Decreased, Helpless, Sleep Disturbance Appearance Appearance- Dress/Hygiene: hospital scrubs; disheveled; depressed; poor eye contact Behaviors Thought Process: WNL Thought Content: WNL Memory: WNL Insight: Fair SI/HI Risk Assessment Past Suicidal Ideation/Attempts Yes Current Suicidal Ideation/Att Yes Past Homicidal Ideation/Att: No Current Homicidal Ideation/Attempts No Degree of Intent: Thoughts/No Intent Danger To: Self Gravely Disabled: Poor Impulse Control, Poor Judgment Risk Factors: high anxiety/distress, SA/MH hospitalized, substance abuse, poor impulse control, male Lethality Ratin PTSD Checklist PTSD Done? patient declined ED Management Sitter: Yes Restraints: Yes DSM5/PS Stressors/Medical Prob Diagnosis' (DSM 5, Stressors, Medical): Unspecified Depression F32.9 Panic Disorder F41.0 Alcohol Use d/o 10.20 Cocaine Use D/O 14.20 Opiate Use D/O maintenance therapy F11.20 separation/divorce Current GAF: 20 Comments: pt reports trigger yesterday when finding out from his she wants a divorce and is seeing someone else. They had been and pt thought they were still trying to work things out. Departure Disposition Psych Medical Clearance Date: 09/10/17 Medically Cleared at: 0715 Time Started: 0715 Time Ended: 0800 Psychiatrist Consulted: Lance Luna MD Date Disposition Established: 09/10/17 Time Disposition Established: 814 Plan for Disposition - Modality: Inpatient Psychiatry Facility: [facility] Rationale for Disposition: Mood stabilization/decrease SI; medication assessment Type of IP Admission: Voluntary Additional Instructions: pt aware of potential plan to taper suboxone and reassess his current medications. Referrals Ad BLOCK,Evaristo Charles (PCP/Family)
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
[2017-09-10 15:52] VITALS: BP 136/75
[2017-09-10 16:05] VITALS: BP 136/75
[2017-09-10 19:56] VITALS: BP 131/77
[2017-09-10 19:58] VITALS: BP 131/77
[2017-09-11] VITALS (8 sets, daily range): BP systolic 133–144; BP diastolic 78–85
--- NOTE | 2017-09-11 11:34 | History & Physical ---
General Information and HPI MD Statement: I have seen and personally examined ANTHONY GÓMEZ IV and documented this H&P. The patient is a 47 year old M who presented with a patient stated chief complaint of "I want to ". Source of Information: patient, EMS, police Exam Limitations: no limitations History of Present Illness: 47-year-old white male was brought in on a police paper for suicidal ideations. Patient told EMS that he was planning to hang himself and the robot was found in the car patient going through separation, his tearful his blood alcohol level was 164 urine toxicology was positive for cocaine (relapsed a before admission with alcohol and drugs). Feels hopeless and helpless has a poor appetite and not sleeping for all these reasons is admitted for evaluation and treatment Allergies/Medications Allergies: Coded Allergies: moxifloxacin (From AVELOX) (HIVES 06/22/17) Home Med list Alprazolam 0.5 MG TABLET 1 TAB PO BIDP PRN ANXIETY Buprenorphine HCl/Naloxone HCl (Suboxone 8 MG-2 MG Sl Film) (Unknown Strength) FILM (Unknown Dose) UNKNOWN (Reported) Gabapentin 300 MG CAPSULE 2 CAP PO 4XDAILY ANXIETY (Reported) Lorazepam 0.5 MG TABLET 1 TAB PO TIDPRN PRN ANXIETY (Reported) Olmesartan Medoxomil (Benicar) 40 MG TABLET 1 TAB PO DAILY BP (Reported) Pantoprazole Sodium 40 MG TABLET.DR 1 TAB PO DAILY GI (Reported) Quetiapine Fumarate (Seroquel XR) 50 MG TAB.ER.24H 1 TAB PO QPM SLEEP ( Reported) Compliance With Home Meds: UNKNOWN Past History Travel History Traveled to [place] past 21 day No Medical History Neurological: NONE EENT: NONE Cardiovascular: hypertension Respiratory: NONE Gastrointestinal: GERD Hepatic: NONE Renal: NONE Musculoskeletal: chronic back pain Psychiatric: anxiety, opioid dependence Endocrine: "BEING WORKED UP FOR HYPERPARATHYROIDISM" History of MRSA: No History of VRE: No History of CDIFF: No Isolation History: Standard Surgical History Surgical History: non-contributory Past Family/Social History Psychosocial History Services at Home: None Review of Systems Review of Systems Constitutional: Reports: see HPI. Exam & Diagnostic Data Last 24 Hrs of Vital Signs/I&O Vital Signs Date Time Temp Pulse Resp B/P B/P Pulse O2 O2 Flow FiO2 Mean Ox Delivery Rate 09/11 0751 97.9 88 139/84 09/11 0731 88 139/84 09/11 0726 97.9 88 139/84 09/10 1957 98.7 77 131/77 09/10 195 98.7 77 131/77 09/10 1605 97.8 79 136/75 09/10 1552 97.8 79 13675 Intake & Output 09/11 1600 09/11 0800 09/11 0000 Intake Total Output Total Balance Patient 186 lb Weight Physical Exam General Appearance Alert, Oriented X3, Cooperative, No Acute Distress Skin No Rashes, No Breakdown, No Significant Lesion HEENT PERRLA, EOMI, Mucous Membr. moist/pink Neck Supple, No JVD, No thryomegaly, +2 Carotid Pulse wo Bruit, No LAD Lymphatic Axillary nl, Cervical nl Cardiovascular Regular Rate, No Murmurs Lungs Clear to Auscultation, Normal Air Movement Abdomen Normal Bowel Sounds, Soft, No Tenderness, No Hepatospenomegaly, No Masses Neurological Exam Findings: Normal Gait, Normal Speech, Strength at 5/5 X4 Ext, Normal Tone, Sensation Intact, Cranial Nerves 3-12 NL, Reflexes 2+ Cranial Nerves II through XII: Intact Extremities No Clubbing, No Cyanosis, No Edema, Normal Pulses, No Tenderness/ Swelling Vascular Normal Pulses, Pulses Symmetrical Last 24 Hrs of Labs/Roberto: Laboratory Tests 09/09/179: Urine Opiates Screen 136, Methadone Screen 81, Barbiturate Screen < 60, Ur Phencyclidine Scrn < 6.00, Amphetamines Screen < 100, U Benzodiazepines Scrn < 85, Urine Cocaine Screen > 1000 H, Urine Cannabis Screen < 5.00 09/09/17 1406: Anion Gap 14, Estimated GFR > 60, BUN/Creatinine Ratio 16.7, Glucose 99, Hemoglobin A1c 5.5, Calcium 11.5 H, Total Bilirubin 0.4, AST 17, ALT 22, Alkaline Phosphatase 83, Total Protein 7.7, Albumin 4.8, Globulin 2.9, Albumin/ Globulin Ratio 1.7, Triglycerides 108, Cholesterol 189, LDL Cholesterol, Calc 103, HDL Cholesterol 65 H, Cholesterol/HDL Ratio 3, TSH &T3 &Free T4 Intrp 1.210, CBC w Diff NO MAN DIFF REQ, RBC 5.24, MCV 87.7, MCH 29.0, MCHC 33.1, RDW 14.2, MPV 6.5 L, Gran % 78.6 H, Lymphocytes % 16.6 L, Monocytes % 3.7, Eosinophils % 0.6, Basophils % 0.5, Absolute Granulocytes 8.7 H, Absolute Lymphocytes 1.9, Absolute Monocytes 0.4, Absolute Eosinophils 0.1, Absolute Basophils 0.1, Serum Alcohol 164.0 Diagnostic Data EKG Results Normal Assessment/Plan As Ranked By This Provider Problem List: 1. Suicidal ideations 2. Depression 3. Acute anxiety 4. Panic attacks 5. Opioid dependence 6. Alcohol dependence Miscellaneous Miscellaneous Documentation Attending Case Discussed With: Lance Luna MD Primary Care Physician: Evaristo Serrano Patient sees these Specialists Psychiatry Level of Patient Care: FELIPA Hackett Consults Needed: Consulting Specialty: Psychiatry Consulting Physician: Dr. Luna Reason for Consult: depression and suicidal ideation polysubstance abuse
--- NOTE | 2017-09-11 15:26 | CPS PROVIDER INIT ASMT PSYCH ---
See Addendum Psychiatric Admission First Aid Teacher's Note Reviewed: Yes Patient Seen and Examined: Yes Identifying Information: 47 yo MWM admitted on 09/10/17 on a voluntary basis, referred by ER. Chief Complaint: BIBA to ER on a [place] PEER. Patient called 911 to report he was driving around with a rope in his car and wanted to kill himself. BAL was 164 and urine drug screen was positive for cocaine. Reaction to Hospitalization: "The staples keep closing in on me. It is difficult being around people. The panic is new territory for me." Reports new stutter/stammer. History of Present Illness Onset of Illness: Recently arrested for breach of peace after confrontation with his in grocery store. Circumstances Leading to Admission: 1) reported having rope with intent to hang self 2) relapse with alcohol and cocaine 3) pending divorce and learned that is seeing someone else 4) stopped Busper, Atarax and Seroquel Problem(s) Justifying Need for Admission: Suicidal ideation and plan. Other HPI: in June 2017. Found out 2 days ago that is seeing someone else. They had "words" in grocery store. She called the police. Arrested for B of P and criminal trespass. In process of hypercalcemia workup with Dr. Villarreal. Had first panic attack in 06/17. Now having panic attacks weekly. Reports they are paralyzing and he can't stand them. Having SI x ~2 months. [place] that Buspar worsened panic so he stoped it ~5 days ago. Made a noose on Sunday night. Posted it on Facebook yesterday. Called his father and police to say he was going straight to [facility]. In recovery but used a "small amount" of cocaine and had 1/2 pint of vodka. Was sober since 08/01/17 and before that 06/24/17 and before that 04/06/17. Sleep: not great x weeks. Appetite: not so great. Weight: lost 12#/2 weeks. Energy: okay. Case and treatment plan discussed in team meeting. Staff reports that this morning, the patient was crying. He was sitting on the floor and demanding Ativan. Past Psychiatric History Past Diagnosis(es)- if any: Panic Major depression BRIDGET Patient believes that hypomania "resonates." Reports all SSRIs and Buspar made him agitated and suicidal. Past Precipitating Factors- if any: Buspar/SSRIs. - Include inpatient and outpatient treatment Treatment History: Ryan Mendoza and Sanna Avalos APRN at [facility]. Roxanna Narvaez for Suboxone. Wants to come off Suboxone. inpatient: 2013, 2007. History of Suicide Attempts or Gestures Made noose MENHADEN VESSEL PILOT. Substance [facility] History[facility], [facility]. Alcohol 3x since 04/06/17. Cocaine 2x since 04/06/17. Opiates were his drug of choice before starting Suboxone in 03/18. Allergies: Coded Allergies: moxifloxacin (From AVELOX) (HIVES 06/22/17) Home Med List: Neurontin 600 mg 4x/day. Benicar 40 mg daily. Pantoprazole 40 mg daily. Seroquel QR 150 mg daily -> tinnitus. Stopped 5 days ago. Buspar 30 mg b.i.d stopped 5 days ago. Suboxone 2/0.5 t.i.d. - Include any medical condition(s) that may - impact the patient's recovery/remission Past Medical History: Hypertension GERD Chronic back pain Hypercalcemia PSH: L rotator cuff repair 2013 (which was trigger for an opiate relapse). Past History Medical History Neurological: NONE EENT: NONE Cardiovascular: hypertension Respiratory: NONE Gastrointestinal: GERD Hepatic: NONE Renal: NONE Musculoskeletal: chronic back pain Psychiatric: anxiety, opioid dependence Endocrine: "BEING WORKED UP FOR HYPERPARATHYROIDISM" History of MRSA: No History of VRE: No History of CDIFF: No Isolation History: Standard Surgical History Surgical History: non-contributory, L rotator cuff repair Psychiatric Family/Social Hx Family History Psychiatric Illness: Mother and brother with depression and anxiety. Father with undiagnosed depression and anxiety. Substance Use: MGF, PGM alcoholism. Aunts, uncles and cousins: alcoholism. Suicides: Denied. Social History Living Situation: Living with parents in [place] since early June 2017. Significant Relationships (family/friends): Divorce in progress. Parents. No children. Has 3 step-children. Has a supportive sponsor. Education: 2 years at [employer] Work in Field. 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 Legal: 8 domestic situation arrests. 1 larceny charge for taking $10 of gas. Healthly Behaviors Screening Tobacco Screening Tobacco Use from ED Docu: Never used - If tobacco counseling indicated - the following topics are required. - #1 Recognizing dangerous situations. - #2 Coping Skills. - #3 Basic information about quitting. Status of Tobacco Cessation Counseling: Not Applicable Cessation Med Status Not Applicable Alcohol Screening - ETOH screen POS if BAL >=80 or Audit-C>= M4/F3 Audit-C Score from Diag Assess: 5 Blood Alcohol Level: Laboratory Tests 09/09 140 Toxicology Serum Alcohol (<10 MG/DL) 164.0 Alcohol Use Screening Results: Pos per Audit C &/or BAL - If ETOH counseling indicated - the following topics are required. - #1 Express concern about the patient's - drinking at unhealthy levels, include informing - of national norms for moderate drinking: - men <= 14 drinks/week, max 4 drinks/occasion - women <= 7 drinks/week, max 3 drinks/occasion - #2 Providing feedback, including linking alcohol to - negative physical effects (liver injury, hypertension) - negative emotional effects (relationship problems and - depression) - negative occupational consequences (reduced work - performance) - #3 Advising the patient to abstain from alcohol or - to drink below national norms for moderate drinking - (as listed above). Status of ETOH Use Counseling: #1, #2 AND #3 Completed. Metabolic Screening - Screen if on a Neuroleptic Medication - Metabolic screening should include: - Blood Pressure, BMI, Glucose or Hgb A1c, & a - Lipid profile from within the past 365 days. Metabolic Screening () Not Applicable, patient not on a neuroleptic. OR () Patient on a neuroleptic(s) . Enter below results for Hemoglobin A1C, and lipid panel if obtained during the last 365 days. BMI: 25.200 Blood Pressure: 133/78 Laboratory Results From [facility] (If applicable): [x] Lab Cholesterol 189 MG/DL 09/09/17 1406 Cholesterol/HDL Ratio 3 % 09/09/17 1406 HDL Cholesterol 65 mg/dL H 09/09/17 1406 Hemoglobin A1c 5.5 % 09/09/17 1406 LDL Cholesterol, Calc 103 mg/dL 09/09/17 1406 Triglycerides 108 mg/dL 09/09/17 1406 Exam and Plan Mental Status Examination Ambulation Status: WNL. Appearance: Thin, dressed in shirt and jeans. Has a small bearded area under lower lip. Attitude towards examiner: Polite and cooperative. Poor eye contact. Psychomotor activity: There is no psychomotor agitation/retardation but quite fidgety. Behavior: Unremarkable. Quality of speech: Normal in volume, rate and tone. Affect: Anxious. Mood: "Not good." Sad 03/11. Anxiety 04/10. Feels hopeless, helpless, worthless and guilty. Gets mood swings. Does not get manic. May get hypomanic, not clear. Not hyper-mandaen. 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 Hx $500 spending sprees. Debt is <$10k. Suicidal Ideation: Reports SI. Gives a safety promise. Homicidal Ideation: Denies HI. Denies HI to . Hallucinations: Denies AH but has tinnitus. Denies VH. Paranoid/Delusional Material: Feels paranoid of some peers here. Denies magical parham. Does not seem delusional. Difficulties with thought organization: Thinking is clear, logical and goal-directed. Insight: Limited. Judgment: Poor. Orientation: Ox3 except gave date as 09/10/17. Cognition: Grossly intact. Memory Function: Grossly intact. Estimate of intellectual functioning: Average. Assets/Strengths Patient Identified Assets/Strengths: "I've got a lot of people pulling for me." Impression/Plan Impression and Plan: The patient is here after considering suicide with a noose. Stressors include: and is seeing someone else alcohol and cocaine relapse stopped several medications 5 days ago - Include all active medical diagnosis that require tx DSM 5 Diagnosis(es): Unspecified depression R/o bipolar 2 disorder Alcohol use disorder Cocaine use disorder Opioid use disorder on Suboxone Hypercalcemia - Initial Tx Plan for Active Psych & Medical Conditions Treatment Plan: The patient will be monitored on the unit for safety, alcohol withdrawal ( unlikely) and mood disorder. I spoke with Dr. Villarreal, who will be consulting about elevated calcium, which might be contributing to patient's psychiatric symptoms. Patient was on Abilify in the past and he would like to try it again. Major risks/benefits of Abilify were discussed with the patient, including risks of metabolic syndrome (weight gain, DM, HTN, HLD) and irreversible TD, and he agrees to this medication. Patient was advised to avoid drugs and alcohol while on this medication. We will start Abilify 2 mg daily Additional information is needed from collaterals: family and OPTs. Anticipate once clinically stable, that the patient will be discharged to parents' home and be referred to IOP. - Factors that would help patient function - in a less restrictive setting. Factors: No longer suicidal.
--- NOTE | 2017-09-11 15:32 | SOCIAL WORKER PROG NOTE PSYCH ---
Social Work Progress Note Progress Note Chidi talked about having anxiety and depression for many years, but stated his symptoms have been worsening. He said he found out in July that he has a condition that causes high blood calcium and that it could be causing his anxiety and depression to get alot worse. He has been recently having thoughts of suicide and he says that's not like him. He has never attempted suicide, but Sunday was considering it with a plan to hang himself. He said he's not sure if he would have followed through with it. He has alot of stressors going on right now. He shared that his filed for divorce in June and he recently signed the papers. He has known his for 38 years. He shared that she is him due to his relapse of alcohol and drugs. He talked about running into her at the store on Sunday and has now found out that she is seeing another man. Apparently he got upset while at the store and she called the police. He was arrested for Breach of Peace. He already has legal charges that he is currently going through/ pending. He shared he was arrested last January when he stole $10 worth of gas and it was considered violation of his probation. He reports he has court for this charge tomorrow in [place]. He has an Sandfill Operator- Aguila Cesar who he is working with. He asked if I could contact his Sandfill Operator to discuss what is needed for court tomorrow. He shared that he has had problems with drug and alcohol addiction. He went to [facility] for tx this past April. He reports being there for 6 weeks. He relapsed Rosy Subha, August 01, and 2 days ago. He has a hx of using heroin and alcohol, but this last relapse he drank a half pint of Vodka and used Cocaine. He stated he has been trying to get his belongings from the house where his is, but on Sunday she called police stating he was trespassing. He is currently living with his parents. He views his Father as supportive. He is open to having Dad in for a meeting. He said his Mother doesn't want to be involved. He doesn't feel that rehab is necessary at this point. He is currently in tx with [facility] in [place]. He has a prescriber and therapist there. He reports that he is actively involved with AA and has a sponsor. Encouraged him to reach out to him while he is here. Also told him about the meetings here on the unit. During our meeting he appeared to be uncomfortable and at one point stated he was having a panic attack. He took some deep breathes and was able to calm down after a couple of minutes. He reports that he has been having several panic attacks throughout the day and that he feels the staples closing in on him and he starts to hyperventilate. Called Sandfill Operator [facility] [phone]. He asked that I fax a letter to [place] [address]. He asked how long he would be in the hospital. I told him I didn't have a d/c date at this time, but it most likely wouldn't be longer than a week. He said he was going to ask the court for a 2 week continuance. Contacted Chidi's Father to schedule a family meeting for tomorrow. He is available to come in at 3pm.
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
--- NOTE | 2017-09-11 18:56 | Cons- Endocrinology ---
General Information and HPI Consulting Request Date of Consult: 09/11/17 Requested By: Magan Reason for Consult: evaluation and management of hypercalcemia Source of Information: patient, old records Exam Limitations: no limitations History of Present Illness: Patient was found to have elevated calcium in 03/2014 with calcium level of 10.9. Since then, his calcium level was checked multiple times and they were ranging from 10.8 and 12.3, his albumin levels were between 4.4 and 4.8. In 08/2017, his PTH was 65.8, ionized calcium 5.8, calcium 11.2 and albumin 4.7. On 09/03/2017, his repeat ionized calcium 5.6, phos 2.5, PTH 55, 24 hours urine calcium 138, 25 OH vitamin D 21 and 1,25 dihydroxy vitamin D 52. He has been feeling anxious and has had stomach discomfort. He denied having any hx of renal stone. Patient was admitted for major depression and suicidal ideation. Blood work done on admission showed calcium 11.5 and albumin 4.8. His TSH was 1.21. Urine toxi screening was positive for Cocaine. Blood work showed ETOH level of 164. His father has had kidney stones and thyroid cancer. Allergies/Medications Allergies: Coded Allergies: moxifloxacin (From AVELOX) (HIVES 06/22/17) Home Med List: Alprazolam 0.5 MG TABLET 1 TAB PO BIDP PRN ANXIETY Buprenorphine HCl/Naloxone HCl (Suboxone 8 MG-2 MG Sl Film) (Unknown Strength) FILM (Unknown Dose) UNKNOWN (Reported) Gabapentin 300 MG CAPSULE 2 CAP PO 4XDAILY ANXIETY (Reported) Lorazepam 0.5 MG TABLET 1 TAB PO TIDPRN PRN ANXIETY (Reported) Olmesartan Medoxomil (Benicar) 40 MG TABLET 1 TAB PO DAILY BP (Reported) Pantoprazole Sodium 40 MG TABLET.DR 1 TAB PO DAILY GI (Reported) Quetiapine Fumarate (Seroquel XR) 50 MG TAB.ER.24H 1 TAB PO QPM SLEEP ( Reported) Review of Systems Review of Systems Constitutional: Reports: see HPI. Cardiovascular: Denies: chest pain. Respiratory: Denies: short of breath. GI: Reports: see HPI (stomach discomfort). Genitourinary: Denies: dysuria. Musculoskeletal: Denies: back pain, gout, joint pain. Neurological/Psychological: Reports: depressed ( with suicidal ideation). Hematologic/Endocrine: Denies: polyuria, polydipsia. 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 [employer] Exam & Diagnostic Data Last 24 Hrs of Vital Signs/I&O Vital Signs Date Time Temp Pulse Resp B/P B/P Pulse O2 O2 Flow FiO2 Mean Ox Delivery Rate 09/11 1557 79 144/81 09/11 1548 79 144/81 09/11 1216 71 133/78 09/11 1203 71 133/78 09/11 0751 97.9 88 139/84 09/11 0731 88 139/84 09/11 0726 97.9 88 139/84 09/10 1958 98.7 77 131/77 09/10 1956 98.7 77 131/77 Intake & Output 09/11 1600 09/11 0800 09/11 0000 Intake Total Output Total Balance Patient 186 lb Weight Physical Exam General Appearance: no apparent distress Neck: thyromegaly (right thyroid lobe prominent) Cardiovascular: regular rate/rhythm Gastrointestinal: soft, non-tender Extremities: no edema Labs/Roberto Results: Laboratory Tests 09/09 2109 Toxicology Urine Opiates Screen (>2000 NG/ML) 136 Methadone Screen (>300 NG/ML) 81 Barbiturate Screen (>200 NG/ML) < 60 Ur Phencyclidine Scrn (>25 NG/ML) < 6.00 Amphetamines Screen (>1000 NG/ML) < 100 U Benzodiazepines Scrn (>200 NG/ML) < 85 Urine Cocaine Screen (>300 NG/ML) > 1000 H Urine Cannabis Screen (>50 NG/ML) < 5.00 Assessment/Plan Assessment/Plan Patient has had hypercalcemia since 03/2014 along with borderline elevated PTH. His father has had hx of thyroid cancer. Clinically he has been suffering from major depression along with suicidal ideation. Plan: 1. repeat calcium, ionized calcium, PTH, 25 OH vitamin D, 1, 25 dihydroxy vitamin D and PTH tomorrow am; 2. if biochemical work-up is consistent with primary hyperparathyroidism, I will order parathyroid scan and neck us to check both thyroid gland and parathyroid gland. 3. will obtain DEXA as outpatient. will follow. Consult Acknowledgment - Thank you for your consult request.
[2017-09-12] VITALS (8 sets, daily range): BP systolic 132–145; BP diastolic 76–79
--- NOTE | 2017-09-12 10:50 | IP INCIDENTAL NOTE PSYCH ---
Incidental Note Notation: Case d/w Sanna Castillo, MASONRY INSPECTOR [phone]. She reports patient has switched about what medications he wants, from Seroquel and BuSpar to Abilify. She reports he wants to come off of Suboxone to get onto benzos.
--- NOTE | 2017-09-12 11:44 | SOCIAL WORKER PROG NOTE PSYCH ---
Social Work Progress Note Progress Note Talked to Chidi about meeting at 3pm with his Father. Asked how he was doing today? He said he was doing a little better, but didn't sleep well last night. Complained of his roommate snoring all the time. Tried earplugs but they didn't seem to help. He is hoping for a better night sleep tonight. Father came in for a family meeting at 3pm. Chidi started the conversation by sharing an interaction that happened between him and Florina (charge nurse), that was upsetting to him. We discussed this interaction which then led to my question of why he isn't participating in treatment here? He talked about how he doesn't see the benefit of participating with peers who he considers limited and beneath his intellectual functioning. I reiterated that groups are a big component of the tx offered here and that he agreed to that coming in on a voluntary basis. Encouraged him to focus on what he can get out of group and talked about the benefits of getting out of his "own head" right now. Dad mentioned that the Digitizer Operator didn't get the letter I was supposed to write for court and that court didn't have the letter either. I told them the letter was faxed yesterday and that I have the confirmation that it went through so I'm not sure why no one got it? I told Dad I would give him a copy of it and send a copy to the Digitizer Operator. Dr. Luna attended part of this meeting. He discussed what is being followed on by Dr. Villarreal and what medications are being tried to manage his symptoms. Dad believes that the parathyroid condition that he may have is playing a significant role in his mood. He is concerned about the anger he seems to be exhibiting. Dr. Luna stated that the medication being offered is a mood stabilizer which should help with managing his moods. Chidi was having a difficult time during the meeting. He was extremely irritable and appeared to be misperceiving information being spoken about. He put his head down throughout periods of the conversation. He shared that he feels he is greiving the loss of his and that he is going through an angry stage. Acknowledged and empathized with his loss. Chidi talked about wanting to leave so he could get back to his outside treatment. He was offered a 3 day paper to terminate voluntary status if he doesn't want to be here. Dr. Luna told him that he would most likely be here about a week. He admitted to making poor choices and bad decisions right now. Talked about this is one of the reasons we think he needs to stay, as well as follow up on his thyroid. Both Dad and Chidi are anxious to get some answers about his tests. Chidi stated he would like to sign a 3 day paper. Explained what that meant and told him that 72 business hours would be up on Sunday. I brought up the idea of IOP at discharge. He got very upset and stated he had just finished an IOP at [facility] and couldn't handle going to another one. He said he has too much going on and he couldn't fathom going to a program 3 days a week. I told him that was his choice, but offered that it may look good for his legal issues. He didn't want to hear it. He feels he is "programmed out." At the end of the meeting Chidi signed a 3 day. I gave a copy of the letter I faxed to court to his Father.
--- NOTE | 2017-09-12 16:13 | CP SOUTH PROGRESS NOTE PSYCH ---
See Addendum Psych (Inpt) Progress Note Progress Note Include the following elements, when applicable: Involvement in the active treatment of the patient with behavioral observations of the patient and the patient's response to the treatment. Review of the ongoing treatment process in the context of the treatment plan. Indication of how multi-disciplinary staff members are carrying out the treatment plan. Plans for future interventions and recommendations for revision of the treatment plan. Liaison with other physicians/providers. Progress Note: Case and treatment plan discussed in team meeting. Staff reports that the patient wants a private room and wants discharge. He was noncompliant with vital signs. Irritable. Slept-in this morning. Paced on the unit. Dr. Villarreal's consult appreciated. Hypercalcemia workup is in progress and may include imaging. Patient seen at 12:44 PM. Patient indicated to me that his gabapentin 600 mg was dosed SAP ABAP PROGRAMMER at 4 times a day, not 3 times a day, so I have corrected this. Reports little things set him off. He appears fragile and is crying. He feels very uncomfortable being around people. States he is not going to groups because it is hard for him to be around people. He denies that he is looking for benzodiazepines. Reports Benadryl last night did not really do much. He reports that Benadryl is more effective for him than is hydroxyzine. Reports he had visits last night from father and AA sponsor. Patient agrees to increase Abilify dose to 7 mg daily. Rates sad mood 8/10 and anxiety 10/10. Feels hopeless, helpless, worthless and guilty. Denies active and passive suicidal ideation. Denies homicidal ideation. Denies auditory and visual hallucinations. When asked about paranoid ideation, he responded that it is questionable. Reports sleep was horrible because his roommate snores. Reports appetite and energy are both half-normal. Tolerating current medications well. Major risks and benefits of Depakote were discussed with the patient, including risks of liver and pancreas irritation, risk of dropping platelets and risk of hair loss. Patient was advised to avoid drugs and alcohol while on this medication. I started the patient on Depakote 250 mg daily and 500 mg nightly. We will check a level on Sunday morning. I joined family meeting around 4:10 PM with patient, father, and Jennifer Bacik, GENERAL SERVICE TECHNICIAN. Patient's and father's questions were addressed. Patient indicated intent to submit a three-day paper. IMPRESSION: Slow progress. Continue present treatment plan. Monitor response to buddhism of gabapentin dose to 600 mg 4 times a day, increase in Abilify dose to 7 mg a day and addition of Depakote 250 mg in the morning and 500 mg at bedtime. I do not believe that the patient is stable for discharge at this time , as he remains labile and impulsive and fashioned a noose SAP ABAP PROGRAMMER.
[2017-09-13] VITALS (8 sets, daily range): BP systolic 123–137; BP diastolic 62–76
--- NOTE | 2017-09-13 08:21 | PN- Endocrinology ---
Assessment/Plan Endoscopy Assessment: Patient has had hypercalcemia since 03/2014 along with borderline elevated PTH. His father has had hx of thyroid cancer. Clinically he has been suffering from major depression along with suicidal ideation. Repeat calcium 11.1, PTH 77.1, albumin 4.3, PTH 77.1 and 25 OH vitamin D 19.4. Ionized calcium and 1, 25 dihydroxy vitamin D level are still pending. Plan: 1. start vitamin D 1000 units daily; 2. Biochemically he has primary hyperparathyroidism, I will recommend having neck us and parathyroid scan done. 3. DEXA will be done as outpatient. Subjective Subjective: He feels oky this morning. Objective Last 24 Hrs of Vital Signs/I&O Vital Signs Date Time Temp Pulse Resp B/P B/P Pulse O2 O2 Flow FiO2 Mean Ox Delivery Rate 09/13 0813 Room Air 09/13 0805 96.9 63 65 135/76 09/13 0748 96.9 63 135/76 09/13 0746 96.9 63 135/76 09/12 2241 98.5 73 132/78 09/12 2004 98.5 73 132/78 09/12 1610 60 145/78 09/12 1607 60 145/78 09/12 1227 68 139/79 09/12 1157 68 139/79 Intake & Output 09/13 1600 09/13 0800 09/13 0000 Intake Total Output Total Balance Patient 186 lb Weight Results Pertinent Lab/Roberto Results: Laboratory Tests 09/12 09/12 0615 0615 Chemistry Sodium (137 - 145 mmol/L) 137 Potassium (3.5 - 5.1 mmol/L) 4.1 Chloride (98 - 107 mmol/L) 98 Carbon Dioxide (22 - 30 mmol/L) 28 Anion Gap (5 - 16) 11 BUN (9 - 20 mg/dL) 13 Creatinine (0.7 - 1.2 mg/dL) 0.8 Estimated GFR (>60 ml/min) > 60 BUN/Creatinine Ratio (7 - 25 %) 16.3 Calcium (8.4 - 10.2 mg/dL) 11.1 H Ionized Calcium Pending Albumin (3.5 - 5.0 g/dL) 4.3 Amylase (30 - 110 U/L) 53 25-OH Vitamin D Total (30 - 100 ng/ml) 19.4 L Vit D 1,25-Dihyd Total Pending 1,25 Dihydroxy Vit D2 Pending 1,25 Dihydroxy Vit D3 Pending PTH Intact (18.4 - 80.1 pg/ML) 77.1
--- NOTE | 2017-09-13 10:12 | SOCIAL WORKER PROG NOTE PSYCH ---
Social Work Progress Note Progress Note Chidi approached me this morning anxious stating he needed the letter I faxed court to say he was in the ER on 09/09 and I had put down he was [facility]. He said that did not satisfy the reason for missing court and he asked if I could revise it and send it to his Sales And Service Consultant and [address]. A letter was revised and refaxed. I later called the court to ensure they received the document and found out that this typewriter aligner had been faxing it to the court house next door at [address] I got the correct fax number and faxed the letter again. Spoke with Chidi and explained the above information. Chidi was calm and stated everything will work out and he's not worried about it. Chidi talked about having his ultrasound today to look at his thyroid. He talked about having some relief knowing that there is a possible medical condition for what is going on. It is actually more reassuring for him to know than to think it's all mental health. Talked about having attended group today. Said he was glad he did and it was good to do something throughout the day. He definetely seemed less irritable and more relaxed today. He thinks that the Depakote may be helping. Talked about the divorce and issues related to his . He stated he will be staying away from her and keeping his distance for some time. They have a court date for the divorce in 6 weeks. Discussed self-care and balancing his interests and other things with all the stress related issues he has going on. He mentioned wanting to get back into running and getting back to playing guitar. Discussed aftercare planning. He is interested in going to see a psychiatrist at [facility]. I told him I will discuss that with the team.
--- NOTE | 2017-09-13 14:38 | CP SOUTH PROGRESS NOTE PSYCH ---
Psych (Inpt) Progress Note Progress Note Include the following elements, when applicable: Involvement in the active treatment of the patient with behavioral observations of the patient and the patient's response to the treatment. Review of the ongoing treatment process in the context of the treatment plan. Indication of how multi-disciplinary staff members are carrying out the treatment plan. Plans for future interventions and recommendations for revision of the treatment plan. Liaison with other physicians/providers. Progress Note: Case and treatment plan discussed in team meeting. Staff reports that the patient is denying suicidal ideation. Kept to himself yesterday. Patient seen at 11:59 AM. He states "I feel better, actually." He thinks Depakote is helping. States he does not feel nearly as agitated as he did yesterday. Reports he is able to participate in groups. Anticipates having parathyroid ultrasound today. Affect is calm and euthymic. Mood is content. Rates sad mood and anxiety both 5/10. Denies feeling hopeless, helpless or worthless. Feels guilty a little bit. Denies active and passive suicidal ideation. Denies homicidal ideation, stating "definitely not." Denies auditory and visual hallucinations and paranoid ideation. Reports he slept better after trazodone. Would like dose reduced to 25 mg and I will do so. Reports appetite and energy are good. Tolerating medications well, without complaint. Patient's three-day paper will on Sunday. Patient refuses recommendation for an IOP. He plans to return outpatient treaters. IMPRESSION: Slow progress. Continue present treatment plan. Anticipate discharge on Sunday.
--- NOTE | 2017-09-13 18:28 | ULTRASOUND REPORT ---
EXAMINATION: US THYROID CLINICAL INFORMATION: 47-year-old male with primary hyperparathyroidism. Positive family history of thyroid cancer. Enlarged right thyroid gland on physical examination.. COMPARISON: None TECHNIQUE: Linear transducer soliz-scale and color Doppler examination with attention to the region of the thyroid. FINDINGS: SIZE: Measurements of the thyroid lobes and nodules are given in sagittal, anteroposterior and transverse dimensions respectively. Right Thyroid Lobe: 5.3 x 1.5 x 1.2 cm, volume 5.0 mL. Left Thyroid Lobe: 5.6 x 1.2 x 1.8 cm, volume 6.3 mL. Isthmus: 0.2 cm in maximum AP dimension. PARENCHYMA: The gland echotexture is homogeneous. Thyroid vascularity is normal. RIGHT THYROID LOBE: 2 nodules are seen. 1. Location: Lower pole, anteromedially Size: 0.8 x 0.6 x 0.8 cm Characteristics: Heterogeneous, isoechoic solid nodule with irregular margins. No associated calcifications. Intranodular flow observed. 2. Location: Midpole, anterolaterally Size: 0.3 x 0.2 x 0.3 cm Characteristics: Isoechoic solid nodule with irregular margins. No associated calcifications. Intranodular flow observed. ISTHMUS: No nodules. LEFT THYROID LOBE: A single nodule was identified. Location: Midpole, anterolaterally Size: 0.8 x 0.7 x 0.5 cm Characteristics: Complex solid and cystic nodule nodule with with a hypoechoic rind. Associated microcalcifications. Intranodular flow observed. NODES: No lymphadenopathy is seen in the tissue surrounding the thyroid gland. IMPRESSION: Small bilateral thyroid nodules. The nodule on the left side, although slightly less than 1 cm in size, has solid and cystic components with associated microcalcifications. Given the family history of thyroid cancer and a personal history of hyperparathyroidism, I would recommend a fine-needle aspiration biopsy of this lesion to exclude malignancy. Various management parameters for solitary thyroid nodules are in the literature. According to the [employer], recommendations for thyroid nodules are as follows: Benign: Purely cystic nodules (no solid component). Estimated risk of malignancy < 1%. Recommendation: No biopsy or ultrasound follow up required. Very low suspicion: Spongiform or partially cystic nodules without any of the sonographic features described in low, intermediate or high suspicions patterns. Estimated risk of malignancy < 3%. Recommendation: Consider FNA at > 2 cm. Observation without FNA is also a reasonable option. Recommend repeat ultrasound in 24 months for nodules measuring greater than 1 cm. Nodule measuring less than 1 cm do not require ultrasound follow up. Low suspicion: Isoechoic or hyperechoic solid nodule, or partially cystic nodule with eccentric solid areas, without microcalcification, irregular margin or extrathyroidal extension, or taller than wide shape. Estimated risk of malignancy 5-10%. Recommendation: FNA at > 1.5 cm. Recommend repeat ultrasound in 12-24 months for nodules measuring less than 1.5 cm. Intermediate suspicion: Hypoechoic solid nodule with smooth margins without microcalcification, extrathyroidal extension, or taller than wide shape. Estimated risk of malignancy 10-20%. Recommendation: FNA at > 1 cm. Recommend repeat ultrasound in 12-24 months for nodules measuring less than 1 cm. High suspicion: Solid hypoechoic nodule or solid hypoechoic component of a partially cystic nodule with one or more of the following features: irregular margins (infiltrative, microlobulated), microcalcifications, taller than wide shape, rim calcifications with small extrusive soft tissue component, evidence of extrathyroidal extension. Estimated risk of malignancy > 70-90%. Recommendation: FNA at > 1 cm. Recommend repeat ultrasound in 6-12 months for nodules measuring less than 1 cm.
[2017-09-14 07:38] VITALS: BP 118/78
[2017-09-14 08:12] VITALS: BP 118/78
--- NOTE | 2017-09-14 10:58 | PN- Endocrinology ---
Assessment/Plan Endoscopy Assessment: Patient has had hypercalcemia since 03/2014 along with borderline elevated PTH. one of his parents has had hx of thyroid cancer. Clinically he has been suffering from major depression along with suicidal ideation. Repeat calcium 11.1, PTH 77.1, albumin 4.3, PTH 77.1 and 25 OH vitamin D 19.4. He was started on vitamin D 1000 units daily. Ionized calcium and 1, 25 dihydroxy vitamin D level are still pending. thyroid u.s was done--- RIGHT THYROID LOBE: 2 nodules are seen. 1. Location: Lower pole, anteromedially Size: 0.8 x 0.6 x 0.8 cm Characteristics: Heterogeneous, isoechoic solid nodule with irregular margins. No associated calcifications. Intranodular flow observed. 2. Location: Midpole, anterolaterally Size: 0.3 x 0.2 x 0.3 cm Characteristics: Isoechoic solid nodule with irregular margins. No associated calcifications. Intranodular flow observed. ISTHMUS: No nodules. LEFT THYROID LOBE: A single nodule was identified. Location: Midpole, anterolaterally Size: 0.8 x 0.7 x 0.5 cm Characteristics: Complex solid and cystic nodule nodule with with a hypoechoic rind. Associated microcalcifications. Intranodular flow observed. Plan: will arrange FNA to bilateral dominant 8 mm nodules, parathyroid scan and DEXA as outpatient. Then the further management will be determined accordingly. For now, he will continue taking vitamin D 1000 units daily. The plan has been discussed with patient. Subjective Subjective: He feels okay. Objective Last 24 Hrs of Vital Signs/I&O Vital Signs Date Time Temp Pulse Resp B/P B/P Pulse O2 O2 Flow FiO2 Mean Ox Delivery Rate 09/14 0812 97.1 78 118/78 09/14 0739 97.1 78 65 118/78 09/14 0738 97.1 78 118/78 / 1945 98.8 66 134/65 09/13 1934 98.8 66 134/65 /15 1601 66 137/67 / 1556 66 137/67 / 1208 71 123/62 09/13 1206 71 123/62
[2017-09-14 11:59] VITALS: BP 111/65
[2017-09-14 12:00] VITALS: BP 111/65
--- NOTE | 2017-09-14 14:17 | SOCIAL WORKER PROG NOTE PSYCH ---
Social Work Progress Note Progress Note Chidi found out that he has some nodules that will need to be tested to see if they are cancerous. He is taking the news fairly well. He feels less anxious than he did a couple of days ago. Talked about how it's good that he is finding out all of this why is here and that things happen for a reason sometimes. He agreed. We talked about doing his referral for follow up at [facility]. I told him it would be good for him to terminate with his prescriber at [facility] while he is here. He agreed to do that. He asked if there are any anger management groups at [facility]. I told him there are weekly groups, but I didn't know the specifics. He may be interested in attending a group weekly. He is aware that he will see Dr. Flannery on Sunday and that we will be discharging Sunday. Talked about tentative d/c for Sunday at 11am. He said that he will be having his Dad pick him up.
--- NOTE | 2017-09-14 15:33 | CP SOUTH PROGRESS NOTE PSYCH ---
Psych (Inpt) Progress Note Progress Note Include the following elements, when applicable: Involvement in the active treatment of the patient with behavioral observations of the patient and the patient's response to the treatment. Review of the ongoing treatment process in the context of the treatment plan. Indication of how multi-disciplinary staff members are carrying out the treatment plan. Plans for future interventions and recommendations for revision of the treatment plan. Liaison with other physicians/providers. Progress Note: Case and treatment plan discussed in team meeting. Staff reports that the patient is denying suicidal ideation. Ultrasound was positive for thyroid nodules. He has expressed some relief that his situation is at least in part caused by a medical condition. Appearing calmer. No longer requires CIWA so I will discontinue it. Patient seen at 1:30 PM. He was asleep in his room but got up to me in office. Feels pretty good. Reports he has thyroid nodules and states "as concerning as it is for me, it lends an explanation to some of the situations I'm dealing with." Affect is calm and euthymic. States mood is "pretty good, believe it or not." Rate sad mood 3/10 and anxiety 4/10. Denies feeling hopeless, helpless or worthless. Feels guilty a little bit. Denies active and passive suicidal ideation. Denies homicidal ideation. Denies auditory and visual hallucinations and paranoid ideation. Reports he slept from 12 AM to 5 AM last night. Wants trazodone dose increased back to 50 mg prn but wants it given at 9 PM. I made this change. Appetite is pretty good. Energy is good. Tolerating medications well, without complaint. Patient has a 3-day paper in place that will on Sunday. IMPRESSION: Slow progress. Continue present treatment plan. Patient is scheduled for a Depakote level tomorrow morning. Please adjust dose to achieve a blood level between [address] Villarreal will be following the patient about thyroid nodules. Discharge is planned for Sunday. Patient refuses recommendation for IOP but wants outpatient treatment.
[2017-09-14 15:53] VITALS: BP 129/71
[2017-09-14 19:49] VITALS: BP 141/76
[2017-09-15 07:55] VITALS: BP 120/70
[2017-09-15 12:12] VITALS: BP 145/80
--- NOTE | 2017-09-15 12:13 | CP SOUTH PROGRESS NOTE PSYCH ---
Psych (Inpt) Progress Note Progress Note Include the following elements, when applicable: Involvement in the active treatment of the patient with behavioral observations of the patient and the patient's response to the treatment. Review of the ongoing treatment process in the context of the treatment plan. Indication of how multi-disciplinary staff members are carrying out the treatment plan. Plans for future interventions and recommendations for revision of the treatment plan. Liaison with other physicians/providers. Progress Note: Pleasant, engaged and coherent. Stated that his recently discovered medical issues have thrown him for a loop but he appears more calmed with the fact that they could have impacted his psychiatric condition dramatically. Discussed that depression on its own has many chemical causes and educated him about risk factors and stressors which could cause severe depressive sx. He denies feeling suicidal and feels that he is usually buzzing and has panic attacks, and feels that the abilify and depakote have been mellowing him out. VPA level 47 MSE: middle aged man, well groomed, coherent. Has healed scar on face. Speech is normal. Good eye contact. His affect is full and mood is neutral. His thought process is logical and thought content free of delusions. No hallucinations and no SI.HI . His insight appears adequate and judgment good. A: 47 year old man w/ depressive sx, drug use hx, recently dx nodules which he appears appropriately concerned about. Motivated to follow up w/ treatment and determine cause of both nodules and his depression. Plan: address his residual depressive sx w/ adjusting his VPA, adding in day time dose 250mg today, and increase overall dose 500mg in the morning and 750mg at night time for mood stabilization with repeat level on Sunday. Educated him about interaction between mental and medical illnesses and predispositions for certain mental illnesses. Continue current plan of care.
[2017-09-15 15:39] VITALS: BP 138/73
[2017-09-15 19:41] VITALS: BP 143/72
[2017-09-16 08:08] VITALS: BP 103/59
[2017-09-16 12:09] VITALS: BP 124/54
--- NOTE | 2017-09-16 14:17 | CP SOUTH PROGRESS NOTE PSYCH ---
Psych (Inpt) Progress Note Progress Note Include the following elements, when applicable: Involvement in the active treatment of the patient with behavioral observations of the patient and the patient's response to the treatment. Review of the ongoing treatment process in the context of the treatment plan. Indication of how multi-disciplinary staff members are carrying out the treatment plan. Plans for future interventions and recommendations for revision of the treatment plan. Liaison with other physicians/providers. Progress Note: Pleasant, engaged and well related. Stated that abilify mellows him out and requestesd a higher doses. Stated that he feels fine on increased dose of depakote. Looking forward tro discharge , asking about scripts and appts. Has been socializing overall. MSE: middle aged man, well groomed, well related. His speech is normal and he makes good eye contact. His thinking is logical. There is no thought content abnormalities. His affect is full and mood is neutral. His insight appears adequate and judgment good. A: 47 year old man w/ depressive sx, drug use hx, recently dx nodules which he appears appropriately concerned about. Motivated to follow up w/ treatment and determine cause of both nodules and his depression. Plan: address his residual depressive sx w/increasing abilify to 10mg/day. Add in eye drops for dry eyes and change Tylenol to ibuprofen for joint pain. Plan for d/c tmr.
[2017-09-16 15:35] VITALS: BP 139/68
[2017-09-16 19:37] VITALS: BP 136/71
[2017-09-17 07:36] VITALS: BP 143/62
--- NOTE | 2017-09-17 10:37 | SOCIAL WORKER PROG NOTE PSYCH ---
Social Work Progress Note Progress Note Chidi reported that he had a good weekend. Reports his anxiety has significantly decreased and he likes the current medications that he is on. He has not had any panic symptoms. Looking forward to being discharged today. Talked about his follow up appts. at [facility]. Intake is scheduled on 09/24 10: 45am with Laury. A medication evaluation is scheduled with Dr. Amador for 10/11 at 10:30am. Chidi seemed happy with these arrangements. Said his Dad will be here today at 11am to pick him up. Chidi will be scheduling an appt. with Dr. Villarreal to follow up on his thyroid condition.
[2017-09-17] MEDS ORDERED: VITAMIN D31000 UNI2 PO (11:11)
[2017-09-17] MEDS ORDERED: ABILIFY15 M1 PO (11:11)
[2017-09-17] MEDS ORDERED: TRAZODONE HCL50 M1 PO (11:11)
[2017-09-17] MEDS ORDERED: NICORELIEF2 MG PO (11:11)
[2017-09-17] MEDS ORDERED: DIPHENHYDRAMINE50 M1 PO (11:11)
--- NOTE | 2017-09-17 11:15 | Patient Discharge Instructions ---
Psych Discharge Inst General Discharge Information Reason for Admission: Patient called 911 to report he was driving around with a rope in his car and wanted to kill himself. BAL was 164 and urine drug screen was positive for cocaine. Psy Discharge Primary Diag+ Unspecified Depressive Di Alcohol Use Disorder, Rule Out Bipolar II Psy Discharge Secondary Diag+ Cocaine Use Disorder Opioid Use Disorder Summary Tests/Major Procedures Lab 25-OH Vitamin D Total 19.4 ng/ml L 09/12/17 0615 Calcium 11.1 mg/dL H 09/12/17 0615 Cholesterol 189 MG/DL 09/09/17 1406 HDL Cholesterol 65 mg/dL H 09/09/17 1406 Ionized Calcium 5.8 mg/dL H 09/12/17 0615 LDL Cholesterol, Calc 103 mg/dL 09/09/17 1406 Triglycerides 108 mg/dL 09/09/17 1406 WBC 11.1 /CUMM H 09/09/17 1406 Valproic Acid 58.6 ug/mL 09/17/17 0610 Studies Pending at DC: None Patient Instructions Contact Information Your Psychiatrist on [facility] was Davis Flannery MD * If you are experiencing an emergency related to this hospitalization, please call [phone] to contact the treating psychiatrist or the psychiatrist-on- call. * To Request a copy of your medical records, please contact the Medical Records Department at [phone]. * To request results of studies pending at the time of discharge, please call [phone]. * Continue your Medications until directed to stop by your Healthcare provider. General Medication Information Please continue to take your new medications and your continued home medications , unless otherwise indicated on your discharge medication list, or unless directed by your MD or MEDICAL ART THERAPIST to stop them. Special Instructions Diet Regular Activity Normal - Tobacco Use Treatment Offered Post DC Medications Offered: Script Given-See Med List Post DC Tobacco Treatment Plan: Refused Tobacco Tx Pgm - EtOH/Drug Use D/O Treatment Offered Post DC Medications Offered: Script Given-See Med List Post DC EtOH/SubAbuse TX Plan: Other SubAbuse/Dual Pgm Metabolic Screening Patient on a neuroleptic(s) . Enter below results for Hemoglobin A1C, and lipid panel if obtained during the last 365 days. BMI: 25.200 Blood Pressure: 143/62 Laboratory Results From [facility] (If applicable): Lab Cholesterol 189 MG/DL 09/09/17 1406 Cholesterol/HDL Ratio 3 % 09/09/17 1406 HDL Cholesterol 65 mg/dL H 09/09/17 1406 Hemoglobin A1c 5.5 % 09/09/17 1406 LDL Cholesterol, Calc 103 mg/dL 09/09/17 1406 Triglycerides 108 mg/dL 09/09/17 1406 Advance Directives Does the Patient have Medical Advance Directives No/Refused further info Does Pt have Psychiatric Advance Directives? No/Refused further info Does Patient have a Designated Surrogate Decision Maker: No Information About Psychiatric Advance Directives Provided? Refused Discharge Plan Post Hospital Treatment Plan: [facility]-OPS and Suboxone Program
[2017-09-17] MEDS ORDERED: SUBOXONE 2 MG-1 EACH SL (11:24)
[2017-09-17] MEDS ORDERED: SUBOXONE 4 MG-1 EACH SL (11:24)
[2017-09-17] MEDS ORDERED: DIVALPROEX SOD250 M2 PO (11:28)
[2017-09-17] MEDS ORDERED: DIVALPROEX SOD500 M2 PO (11:28)
[2017-09-17] MEDS ORDERED: GABAPENTIN300 M2 PO (11:28)
--- NOTE | 2017-09-17 11:48 | CP SOUTH PROGRESS NOTE PSYCH ---
Psych (Inpt) Progress Note Progress Note Laboratory Tests 09/17 0610 Toxicology Valproic Acid (50 - 120 ug/mL) 58.6 Vital Signs Date Time Temp Pulse Resp B/P B/P Pulse O2 O2 Flow FiO2 Mean Ox Delivery Rate 09/17 0757 143/62 09/17 0736 98.0 68 143/62 09/16 1937 97.9 60 136/71 09/16 1535 70 139/68 09/16 1209 67 124/54 Dr. Jenkins's notes revieed Case and treatment plan discussed in team meeting. Staff reports that the patient is denying suicidal ideation. Mental Status Examination: The patient seemed to be in good spirits, animated, and looking forward to discharge He reported that his mood is "pretty good,"/rated depression as 1-2 out of 10 mild anxiety (2-3 out of 10). Denied feeling hopeless or worthless Denies active and passive suicidal ideation. Denies homicidal ideation. Denies auditory and visual hallucinations and paranoid ideation. Appetite is pretty good. Energy is good. Tolerating medications well, without complaint. Plan: D/C Home with follow up with [facility] OPS
[2017-09-17 12:26] VITALS: BP 132/70
--- NOTE | 2017-09-17 16:26 | SOCIAL WORKER PROG NOTE PSYCH ---
Social Work Progress Note Faxed Referral(s) Referred To: [facility] Transition of Care Documents sent: Health Summary Faxed to: [facility] Fax #: [phone] Faxed by: Jennifer Garces Date faxed: 09/17/17 Time Faxed: 1400
== END 2017-09-17 13:10 | DRG 754 ==
LOC: ERH 13:23 → CP SOUTH 09-10 11:29 → ERHI 09-10 11:29 → ENTRNSPT 09-10 14:50 → EDTRNSPTSTS 09-10 14:55 → EDTRNSPT 09-10 14:55 → CP SOUTH 09-10 15:08 → CMPTRNSPT 09-10 15:16 → ENRESERV 09-10 23:59 → CP SOUTH 09-13 16:19
PROVIDERS: Emergency Medicine
DX: F32.9 Major depressive disorder, single episode, unspecified (principal); F11.10 Opioid abuse, uncomplicated; F10.10 Alcohol abuse, uncomplicated; F14.10 Cocaine abuse, uncomplicated
CPT/HCPCS: 36415; 80307; 82436; 82652; 93005; 93010; 96372; 99291; G0480; J0401; J1200; J1630; J3101; J3490

== ENCOUNTER 2017-10-19 18:41 | Emergency (ER) | payer OTHER ==
[~2017-10-19 18:41] MED LIST changes: +ABILIFY15 M1 PO; +DIPHENHYDRAMINE50 M1 PO; +DIVALPROEX SOD250 M2 PO; +DIVALPROEX SOD500 M2 PO; +NICORELIEF2 MG PO; +SUBOXONE 2 MG-1 EACH SL; +SUBOXONE 4 MG-1 EACH SL; +TRAZODONE HCL50 M1 PO; +VITAMIN D31000 UNI2 PO
== END 2017-10-19 19:15 | disposition admitted as inpatient to this hospital (09) ==
LOC: ERH 18:41
DX: N23 Unspecified renal colic (principal); R11.0 Nausea

== ENCOUNTER 2017-11-15 14:51 | Emergency (ER) | payer OTHER ==
[~2017-11-15] VITALS: Ht 185.4 cm; Wt 86.2 kg
[2017-11-15 15:06] VITALS: BP 159/96
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
[2017-11-15] MEDS ORDERED: XANAX1 M1 PO ×2 (17:34→17:56)
[2017-11-19] MEDS ORDERED: XANAX1 M1 PO (22:38)
== END 2017-11-15 17:37 ==
LOC: ERH 14:51
DX: F41.9 Anxiety disorder, unspecified (principal); R45.851 Suicidal ideations

== ENCOUNTER 2017-12-11 14:28 | Emergency (ER) | payer OTHER ==
[~2017-12-11 14:28] MED LIST changes: +XANAX1 M1 PO
[2017-12-11 14:36] VITALS: BP 153/92
--- NOTE | 2017-12-11 16:05 | ED PSYCHIATRIC COMPLAINT ---
History of Present Illness General Chief Complaint: Psychiatric Related Complaint Stated Complaint: PANIC ATTACK Source: patient, old records Exam Limitations: no limitations Vital Signs & Intake/Output Vital Signs & Intake/Output Vital Signs Date Time Temp Pulse Resp B/P B/P Pulse O2 O2 Flow FiO2 Mean Ox Delivery Rate 12/11 1436 98.1 108 28 153/92 99 Allergies Coded Allergies: moxifloxacin (From AVELOX) (HIVES 06/22/17) Reconcile Medications Alprazolam (Xanax) 1 MG TABLET 1 TAB PO BID PRN ANXIETY/STRESS Alprazolam (Xanax) 1 MG TABLET 1 TAB PO TIDPRN ANXIETY Alprazolam (Xanax) 1 MG TABLET 1 TAB PO TIDPRN PRN anxiety Aripiprazole (Abilify) 15 MG TABLET 1 TAB PO DAILY Mood Buprenorphine HCl/Naloxone HCl (Suboxone 2 MG-0.5 MG Sl Film) 2 MG-0.5 MG FILM 1 FILM SL DAILY Opioid maintenance Buprenorphine HCl/Naloxone HCl (Suboxone 4 MG-1 MG Sl Film) 4 MG-1 MG FILM 1 FILM SL DAILY + 2mg = 6mg Cholecalciferol (Vitamin D3) 1,000 UNIT TABLET 1,000 IU PO 1700 supplement Diphenhydramine HCl 50 MG CAPSULE 50 MG PO AT BEDTIME insomnia Divalproex Sodium 500 MG TABLET.DR 500 MG PO BID mood Divalproex Sodium 250 MG TABLET.DR 1 TAB PO AT BEDTIME + 500 mg= 750 mg Gabapentin 300 MG CAPSULE 2 CAP PO ANXIETY (Reported) Gabapentin 300 MG CAPSULE 600 MG PO FOUR TIMES A DAY anxiety and pain Nicotine (Nicorelief) 2 MG GUM 2 MG PO Q2P PRN NICOTINE CRAVING Olmesartan Medoxomil (Benicar) 40 MG TABLET 1 TAB PO DAILY BP (Reported) Pantoprazole Sodium 40 MG TABLET.DR 1 TAB PO DAILY GI (Reported) Trazodone HCl 50 MG TABLET 50 MG PO 2100 PRN SLEEP Triage Note: PER PT HAVING A PANIC ATTACK 5TH TIME IN FEW WEEKS REPORTS PRECIPITATING FACTOR DIVORCE DENIES SI/HI REPORTS STOPPED SUBOXONE UNDER MEDICAL DIRECTION LAST WEEK Triage Nurses Notes Reviewed? yes HPI: Patient presents for evaluation of the panic attack. Patient states he has had episodes over the past 6 months. He states he has had a history of anxiety for "my whole life". He states this has now converted over into severe panic attacks that occur intermittently. Nothing seems to make him feel better aside from the use of prior prescription of Klonopin. Patient states that 2 of his most recent psychiatrists at the [facility] program have left their practices. He denies suicide ideation or homicidal ideation. Patient states that he gets short of breath and rapid breathing and heart rate during these panic attack episodes. He states recently he has finalized divorce with his and he also has financial issues that might be provoking these panic attacks. He denies alcohol or drug use. Past History Travel History Traveled to [place] past 21 day No Medical History Any Pertinent Medical History? see below for history Neurological: NONE EENT: NONE Cardiovascular: hypertension Respiratory: NONE Gastrointestinal: GERD Hepatic: NONE Renal: NONE Musculoskeletal: chronic back pain Psychiatric: anxiety, depression, opioid dependence Endocrine: "BEING WORKED UP FOR HYPERPARATHYROIDISM" History of MRSA: No History of VRE: No History of CDIFF: No Surgical History Surgical History: non-contributory Psychosocial History Who do you live with Family Services at Home None What is your primary language German Tobacco Use: Never used Family History Hx Contributory? No Review of Systems Review of Systems Constitutional: Reports: no symptoms. EENTM: Reports: no symptoms. Respiratory: Reports: no symptoms. Cardiovascular: Reports: no symptoms. GI: Reports: no symptoms. Genitourinary: Reports: no symptoms. Musculoskeletal: Reports: no symptoms. Skin: Reports: no symptoms. Neurological/Psychological: Reports: see HPI. Hematologic/Endocrine: Reports: no symptoms. Immunologic/Allergic: Reports: no symptoms. All Other Systems: Reviewed and Negative Physical Exam Physical Exam General Appearance: see below Neurological/Psychiatric: see below Comments: General: Alert, calm, cooperative Head: Normocephalic, atraumatic Eyes: Normal inspection, no nystagmus, EOMI Ears: Normal inspection Nose: Normal inspection Throat: Moist mucosa Neck: Supple, no goiter Heart: Regular rate and rhythm, no murmurs rubs or gallops Lungs: Clear to auscultation bilaterally with good air entry Abdomen: Soft nontender nondistended, normal bowel sounds Chest: Nontender Extremities: Normal range of motion grossly, mild tremors present, no cyanosis clubbing or edema of the upper extremities Neurologic: cranial nerves II through XII grossly intact, speech clear, gait normal Psychiatric: No apparent delusions or hallucinations, no pressured speech or thought blocking SAD PERSONS Done? patient not suicidal Progress Differential Diagnosis: anxiety, bipolar disorder, depression, stress Plan of Care: Orders Procedure Date/time Status THYROID STIMULATING HORMONE 12/11 1443 Active TROPONIN LEVEL 12/11 1443 Active FREE T4 12/11 1443 Active COMPREHENSIVE METABOLIC PANEL 12/11 1443 Active CBC WITHOUT DIFFERENTIAL 12/11 1443 Active EKG 12/11 1435 Active URINE DRUG SCREEN FOR ER ONLY 12/11 1433 Complete Laboratory Tests 12/11/17 1440: Urine Opiates Screen < 100, Methadone Screen 86, Barbiturate Screen < 60, Ur Phencyclidine Scrn < 6.00, Amphetamines Screen < 100, U Benzodiazepines Scrn < 85, Urine Cocaine Screen < 50, Urine Cannabis Screen < 5.00 Departure Departure Disposition: HOME OR SELF CARE Condition: Stable Clinical Impression Primary Impression: Panic attacks Referrals: Julio Cesar CARLSON,Tomas Marinelli (PCP/Family) Additional Instructions: XANAX PRESCRIBED FOR ANXIETY/PANIC ATTACKS. FOLLOW UP WITH [facility]. NOTIFY YOUR PCP OF THIS ED VISIT. RETURN IF ANY CONCERNS OR WORSENING. Departure Forms: Customer Survey General Discharge Information Prescriptions: Current Visit Scripts Alprazolam (Xanax) 1 TAB PO BID PRN ANXIETY/STRESS #14 TAB
[2017-12-11] MEDS ORDERED: XANAX1 M1 PO (16:14)
== END 2017-12-11 16:19 ==
LOC: ERH 14:28
DX: F41.0 Panic disorder [episodic paroxysmal anxiety] (principal)
CPT/HCPCS: 80307; 93005; 93010

== ENCOUNTER 2017-12-15 21:54 | Emergency (ER) | payer OTHER ==
--- NOTE | 2017-12-16 00:09 | ED PSYCHIATRIC COMPLAINT ---
History of Present Illness General Chief Complaint: General Adult Stated Complaint: PT IS HAVING A PANICK ATTACK Source: patient, old records Exam Limitations: no limitations Vital Signs & Intake/Output Vital Signs & Intake/Output Vital Signs Date Time Temp Pulse Resp B/P B/P Pulse O2 O2 Flow FiO2 Mean Ox Delivery Rate 12/15 2219 98.0 86 20 154/80 98 Allergies Coded Allergies: moxifloxacin (From AVELOX) (HIVES 06/22/17) Triage Note: PER PT "ANOTHER PANIC ATTACK" SEEN AT [facility] BY [facility] IN 3 MONTHS Triage Nurses Notes Reviewed? yes Onset: Gradual Duration: week(s): Timing: recent history Severity: moderate HPI: 47-year-old male presents emergency department complaining of panic attack earlier today. Patient states he has been having panic attacks intermittently since last year. Been evaluated at [facility] however complains that he has seen 3 different providers during his 3 sessions. PAtient has taken Xanax in the past which does help with the symptoms however only temporarily. Patient states that today his was away and he felt like he was going to and he was worried because he was home alone. Patient states his panic attacks fluctuating in intensity, currently the patient feels alright however he still feels anxious. Patient denies suicidal ideation, drug use. (Chana PATEL,Jammie Morrison) Reconcile Medications Alprazolam (Xanax) 1 MG TABLET 1 TAB PO BID PRN ANXIETY/STRESS Alprazolam (Xanax) 1 MG TABLET 1 TAB PO TIDPRN ANXIETY Alprazolam (Xanax) 1 MG TABLET 1 TAB PO TIDPRN PRN anxiety Alprazolam (Xanax) 1 MG TABLET 1 TAB PO TIDPRN PRN anxiety Aripiprazole (Abilify) 15 MG TABLET 1 TAB PO DAILY Mood Buprenorphine HCl/Naloxone HCl (Suboxone 2 MG-0.5 MG Sl Film) 2 MG-0.5 MG FILM 1 FILM SL DAILY Opioid maintenance Buprenorphine HCl/Naloxone HCl (Suboxone 4 MG-1 MG Sl Film) 4 MG-1 MG FILM 1 FILM SL DAILY + 2mg = 6mg Cholecalciferol (Vitamin D3) 1,000 UNIT TABLET 1,000 IU PO 1700 supplement Diphenhydramine HCl 50 MG CAPSULE 50 MG PO AT BEDTIME insomnia Divalproex Sodium 500 MG TABLET.DR 500 MG PO BID mood Divalproex Sodium 250 MG TABLET.DR 1 TAB PO AT BEDTIME + 500 mg= 750 mg Gabapentin 300 MG CAPSULE 2 CAP PO ANXIETY (Reported) Gabapentin 300 MG CAPSULE 600 MG PO FOUR TIMES A DAY anxiety and pain Nicotine (Nicorelief) 2 MG GUM 2 MG PO Q2P PRN NICOTINE CRAVING Olmesartan Medoxomil (Benicar) 40 MG TABLET 1 TAB PO DAILY BP (Reported) Pantoprazole Sodium 40 MG TABLET.DR 1 TAB PO DAILY GI (Reported) Trazodone HCl 50 MG TABLET 50 MG PO 2100 PRN SLEEP (Arnel Tom MD) Past History Travel History Traveled to [place] past 21 day No Medical History Any Pertinent Medical History? see below for history Neurological: NONE EENT: NONE Cardiovascular: hypertension Respiratory: NONE Gastrointestinal: GERD Hepatic: NONE Renal: NONE Musculoskeletal: chronic back pain Psychiatric: anxiety, depression, opioid dependence Endocrine: "BEING WORKED UP FOR HYPERPARATHYROIDISM" History of MRSA: No History of VRE: No History of CDIFF: No Surgical History Surgical History: non-contributory Psychosocial History Who do you live with Family Services at Home None What is your primary language Croatian Tobacco Use: Never used Family History Hx Contributory? No (Jammie Hamm) Review of Systems Review of Systems Constitutional: Reports: no symptoms. EENTM: Reports: no symptoms. Respiratory: Reports: no symptoms. Cardiovascular: Reports: no symptoms. GI: Reports: no symptoms. Genitourinary: Reports: no symptoms. Musculoskeletal: Reports: no symptoms. Skin: Reports: no symptoms. Neurological/Psychological: Reports: see HPI. Hematologic/Endocrine: Reports: no symptoms. Immunologic/Allergic: Reports: no symptoms. All Other Systems: Reviewed and Negative (Jammie Hamm) Physical Exam Physical Exam General Appearance: well developed/nourished, no apparent distress, alert, awake Head: atraumatic, normal appearance Eyes: Bilateral: normal appearance. Ears, Nose, Throat: hearing grossly normal Neck: normal inspection, supple, full range of motion Respiratory: normal breath sounds, no respiratory distress, lungs clear Cardiovascular: regular rate/rhythm Extremities: normal range of motion Neurological/Psychiatric: awake, alert, normal mood/affect, calm Appearance/Memory/Insight: appropriate appearance, appropriate insight Behavoir/Eye Contact/Speech: cooperative, good eye contact Thoughts/Hallucinations: normal thought pattern, no apparent hallucination Skin: intact, normal color, warm/dry SAD PERSONS Done? patient not suicidal (Jammie Hamm) Progress Differential Diagnosis: drug intoxication, drug overdose, drug withdrawal, anxiety, panic disorder Plan of Care: Patient offered to speak with crisis team here in the emergency department however he declines. I told the patient that his primary care doctor could give him a referral to a new psychiatrist team if he is unhappy with [facility] outpatient psychiatry. Patient given short-term benzo prescription for panic attacks and will follow-up with his primary care doctor and outpatient psychiatry. The patient agrees with the plan of care. (Jammie Hamm) Departure Departure Disposition: HOME OR SELF CARE Condition: Stable Clinical Impression Primary Impression: Panic disorder Secondary Impressions: Generalized anxiety disorder Referrals: Julio Cesar CARLSON,Tomas Marinelli (PCP/Family) Departure Forms: Customer Survey General Discharge Information Prescriptions: Current Visit Scripts Alprazolam (Xanax) 1 TAB PO TIDPRN PRN anxiety #8 TAB (Jammie Hamm) PA/OPERATIONS AND MAINTENANCE MANAGER Co-Sign Statement Statement: ED Attending supervision documentation- I saw and evaluated the patient. I have also reviewed all the pertinent lab results and diagnostic results. I agree with the findings and the plan of care as documented in the PA's/OPERATIONS AND MAINTENANCE MANAGER's documentation. x I have reviewed the ED Record and agree with the PA's/OPERATIONS AND MAINTENANCE MANAGER's documentation. [] Additions or exceptions (if any) to the PAs/OPERATIONS AND MAINTENANCE MANAGER's note and plan are summarized below: [] (Negro CARLSON,Arnel)
[2017-12-16] MEDS ORDERED: XANAX1 M1 PO (00:11)
[2017-12-16 00:33] VITALS: BP 148/80
== END 2017-12-16 00:48 ==
LOC: ERH 21:54
DX: F41.9 Anxiety disorder, unspecified (principal); F41.0 Panic disorder [episodic paroxysmal anxiety]

== ENCOUNTER 2018-01-28 14:05 | Emergency (ER) | payer OTHER ==
[2018-01-28 14:39] LABS: ABSOLUTE BASOPHIL COUNT 0 /CUMM (0.0-0.2); ABSOLUTE EOSINOPHIL COUNT 0.3 /CUMM (0.0-0.7); ABSOLUTE GRANULOCYTE CT 3.5 /CUMM (1.4-6.5); ABSOLUTE LYMPH COUNT 2.7 /CUMM (1.2-3.4); ABSOLUTE MONOCYTE COUNT 0.7 /CUMM (0.10-0.60); BASOPHIL % 0.3 % (0.0-2.0); EOSINOPHIL % 3.8 % (0-5); GRANULOCYTE % 49.4 % (42.2-75.2); HEMATOCRIT 43.6 % (42-52); MEAN CORPUSCULAR HGB 31.2 PG (27.0-31.0); MEAN CORPUSCULAR HGB CONC 33.9 G/DL (33.0-37.0); MEAN CORPUSCULAR VOLUME 92.2 FL (80.0-94.0); MEAN PLATELET VOLUME 6.8 FL (7.4-10.4); PLATELET COUNT 376 /CUMM (130-400); RED BLOOD CELL CT 4.73 /CUMM (4.70-6.10); WHITE BLOOD CELL COUNT 7.1 /CUMM (4.8-10.8)
--- NOTE | 2018-01-28 15:07 | RADIOLOGY REPORT ---
EXAMINATION: XR CHEST CLINICAL INFORMATION: CHEST BEATING FAST COMPARISON: Chest x-ray 06/22/2017 TECHNIQUE: 2 views of the chest were obtained. FINDINGS: No significant abnormality is noted involving the heart, lungs, mediastinum, bony thorax or soft tissues. IMPRESSION: Unremarkable examination.
--- NOTE | 2018-01-28 15:45 | CT SCAN REPORT ---
EXAMINATION: CT HEAD WITHOUT CONTRAST CLINICAL INFORMATION: Headache. Cocaine user. COMPARISON: None TECHNIQUE: Contiguous axial imaging was performed from the skull base to vertex without intravenous administration of contrast. DLP: 600.57 mGy-cm FINDINGS: There is no evidence of acute intracranial hemorrhage or territorial infarction. No abnormal mass effect or midline shift is seen. Saba to white matter differentiation is well preserved. No extra-axial fluid collections are identified. The ventricles are normal in size. There is no abnormal attenuation within the brain parenchyma. The osseous structures and soft tissues are normal. The mastoid air cells and visualized portions of the paranasal sinuses are well aerated. IMPRESSION: No acute intracranial pathology.
--- NOTE | 2018-01-28 16:18 | ED CARDIAC/CP/PALPITATIONS ---
History of Present Illness General Chief Complaint: Chest Pain Stated Complaint: "MY BP IS 190-105, IM SHAKING, AND MY CHEST PRAKASH Source: patient Exam Limitations: no limitations Vital Signs & Intake/Output Vital Signs & Intake/Output Vital Signs Date Time Temp Pulse Resp B/P B/P Pulse O2 O2 Flow FiO2 Mean Ox Delivery Rate 01/28 1619 94 143/93 01/28 1413 98.6 139 21 177/108 97 Room Air Allergies Coded Allergies: moxifloxacin (From AVELOX) (HIVES 06/22/17) Reconcile Medications Alprazolam (Xanax) 1 MG TABLET 1 TAB PO BID PRN ANXIETY/STRESS Alprazolam (Xanax) 1 MG TABLET 1 TAB PO TIDPRN ANXIETY Alprazolam (Xanax) 1 MG TABLET 1 TAB PO TIDPRN PRN anxiety Alprazolam (Xanax) 1 MG TABLET 1 TAB PO TIDPRN PRN anxiety Aripiprazole (Abilify) 15 MG TABLET 1 TAB PO DAILY Mood Buprenorphine HCl/Naloxone HCl (Suboxone 2 MG-0.5 MG Sl Film) 2 MG-0.5 MG FILM 1 FILM SL DAILY Opioid maintenance Buprenorphine HCl/Naloxone HCl (Suboxone 4 MG-1 MG Sl Film) 4 MG-1 MG FILM 1 FILM SL DAILY + 2mg = 6mg Cholecalciferol (Vitamin D3) 1,000 UNIT TABLET 1,000 IU PO 1700 supplement Diphenhydramine HCl 50 MG CAPSULE 50 MG PO AT BEDTIME insomnia Divalproex Sodium 500 MG TABLET.DR 500 MG PO BID mood Divalproex Sodium 250 MG TABLET.DR 1 TAB PO AT BEDTIME + 500 mg= 750 mg Gabapentin 300 MG CAPSULE 2 CAP PO ANXIETY (Reported) Gabapentin 300 MG CAPSULE 600 MG PO FOUR TIMES A DAY anxiety and pain Nicotine (Nicorelief) 2 MG GUM 2 MG PO Q2P PRN NICOTINE CRAVING Olmesartan Medoxomil (Benicar) 40 MG TABLET 1 TAB PO DAILY BP (Reported) Pantoprazole Sodium 40 MG TABLET.DR 1 TAB PO DAILY GI (Reported) Trazodone HCl 50 MG TABLET 50 MG PO 2100 PRN SLEEP Triage Note: PT TO ED WITH C/O SUDDEN ONSET OF ANXIETY, CHEST TINGLING AND HEAD PRESSURE S/P TAKING A HIT OF COCAINE ONE HOUR AGO. LAST USE WAS SEVERAL MONTHS AGO PER PT. DENIES CP. PULSE 139, BP 177/108 IN TRIAGE, APPEARS ANXIOUS. Triage Nurses Notes Reviewed? yes Onset: Gradual Duration: hour(s): Timing: single episode today Quality/Severity: moderate Location: left chest HPI: 47yo male with hx of HTN, panic attacks presents to ED complaining of chest palpatations and chest tingling sensation after "smoking crake". Chest tingling described as left sided, intermittent, improved since onset. The patient denies chest pain. Patient was formerly clean for two month and was at an AA meeting where he met up with another addict and they did drugs after the meeting. Patient reports associated right sided headache which gradually increased, 7/10, pressure sensation, now has resovled. Patient checked his blood pressure when he got home and it was elevated 190/100 so he decided to come in for futher evaluation. Patient states these symptoms felt similar to previous panic attacks however slightly worse in severity. PAtient also reports dyspnea and "tingling feeling in heart". PAtient denies fevers, chills, nausea, vomiting, fatigue. (Jammie Hamm) Past History Travel History Traveled to [place] past 21 day No Medical History Any Pertinent Medical History? see below for history Neurological: NONE EENT: NONE Cardiovascular: hypertension Respiratory: NONE Gastrointestinal: GERD Hepatic: NONE Renal: NONE Musculoskeletal: chronic back pain Psychiatric: anxiety, depression, opioid dependence Endocrine: "BEING WORKED UP FOR HYPERPARATHYROIDISM" History of MRSA: No History of VRE: No History of CDIFF: No Surgical History Surgical History: non-contributory Psychosocial History Who do you live with Family Services at Home None What is your primary language Telugu Tobacco Use: Current Not Daily Illicit Drug Use: cocaine Family History Hx Contributory? No (Jammie Hamm) Review of Systems Review of Systems Constitutional: Reports: no symptoms. EENTM: Reports: no symptoms. Respiratory: Reports: see HPI. Cardiovascular: Reports: see HPI. GI: Reports: no symptoms. Genitourinary: Reports: no symptoms. Musculoskeletal: Reports: no symptoms. Skin: Reports: no symptoms. Neurological/Psychological: Reports: see HPI. Hematologic/Endocrine: Reports: no symptoms. Immunologic/Allergic: Reports: no symptoms. All Other Systems: Reviewed and Negative (Jammie Hamm) Physical Exam Physical Exam General Appearance: well developed/nourished, no apparent distress, alert, awake Head: atraumatic, normal appearance Eyes: Bilateral: normal appearance, PERRL, EOMI. Ears, Nose, Throat: normal pharynx, normal ENT inspection, hearing grossly normal Neck: normal inspection, supple, full range of motion Respiratory: normal breath sounds, no respiratory distress, lungs clear Cardiovascular: regular rate/rhythm, normal peripheral pulses Peripheral Pulses: 2+ radial (R), 2+ radial (L) Gastrointestinal: normal bowel sounds, soft, non-tender, no organomegaly Back: normal inspection, normal range of motion Extremities: normal inspection, normal range of motion Neurologic/Psych: awake, alert, oriented x 3 Skin: intact, normal color, warm/dry Core Measures ACS in differential dx? Yes CVA/TIA Diagnosis No Sepsis Present: No Sepsis Focused Exam Completed? No (Chana PATEL,Jammie Morrison) Progress Differential Diagnosis: AMI, atrial fibrillation, hyperventilation, PSVT, ICH, hypertensive urgency, drug abuse, cocaine induced [place], anxiety Plan of Care: Orders Procedure Date/time Status TROPONIN LEVEL 01/28 1730 Complete EKG 01/28 1730 Active URINE DRUGS OF ABUSE 01/28 1415 Complete TROPONIN LEVEL 01/28 1415 Complete COMPREHENSIVE METABOLIC PANEL 01/28 1415 Complete CBC WITHOUT DIFFERENTIAL 01/28 1415 Complete EKG 01/28 1407 Active Laboratory Tests 01/28/18 1757: Troponin I < 0.01 01/28/18 1621: Urine Opiates Screen < 100, Methadone Screen 107, Barbiturate Screen < 60, Ur Phencyclidine Scrn 7.60, Amphetamines Screen < 100, U Benzodiazepines Scrn < 85, Urine Cocaine Screen > 1000 H, Urine Cannabis Screen < 5.00 01/28/18 1430: Anion Gap 13, Estimated GFR > 60, BUN/Creatinine Ratio 26.0 H, Glucose 151 H, Calcium 9.6, Total Bilirubin 0.4, AST 22, ALT 29, Alkaline Phosphatase 56, Troponin I < 0.01, Total Protein 7.6, Albumin 4.5, Globulin 3.1, Albumin/ Globulin Ratio 1.5, CBC w Diff NO MAN DIFF REQ, RBC 4.73, MCV 92.2, MCH 31.2 H, MCHC 33.9, RDW 14.0, MPV 6.8 L, Gran % 49.4, Lymphocytes % 37.3, Monocytes % 9.2, Eosinophils % 3.8, Basophils % 0.3, Absolute Granulocytes 3.5, Absolute Lymphocytes 2.7, Absolute Monocytes 0.7 H, Absolute Eosinophils 0.3, Absolute Basophils 0 Initial EKG shows sinus tachycardia. Labs show troponin enzyme negative. Urinalysis shows +cocaine. Patient's symptoms have improved since he has been here in the emergency department, tachycardia has improved. Will obtain repeat troponin and EKG for further assessment. Repeat EKG shows improved heart rate, sinus rhythm, no acute ischemic changes. Patient states he has to leave to go to a and perform a eulogy, he cannot wait for troponin test. I informed the patient why we are getting the repeat test and that risks to leaving prior to result could include heart attack and . He understands the risks and decided to sign out AGAINST MEDICAL ADVICE. Dr. Quinteros aware of patient's decision. After patient signed out AMA second troponin test result was negative. Diagnostic Imaging: Viewed by Me: Radiology Read, CT Scan. Discussed w/RAD: Radiology Read, CT Scan. Radiology Impression: PATIENT: ANTHONY GÓMEZ IV PRESENT AGE: 47 PATIENT ACCOUNT NO: [id number] : 69 LOCATION: [facility] ORDERING PHYSICIAN: Herminio PATEL SERVICE DATE: 01/28/18 EXAM TYPE : RAD - XRY-CHEST XRAY, TWO VIEWS EXAMINATION: XR CHEST CLINICAL INFORMATION: CHEST BEATING FAST COMPARISON: Chest x-ray 06/22/2017 TECHNIQUE: 2 views of the chest were obtained. FINDINGS: No significant abnormality is noted involving the heart, lungs, mediastinum, bony thorax or soft tissues. IMPRESSION: Unremarkable examination. DICTATED BY: Lev Bauer MD DATE/TIME DICTATED:01/28/181501 FIELD SPECIALIST:BAKARI DATE/TIME TRANSCRIBED:01/28/181501 CONFIDENTIAL, DO NOT COPY WITHOUT APPROPRIATE AUTHORIZATION. <Electronically signed in Other Vendor System> SIGNED BY: Lev Bauer MD 01/28/181506, PATIENT: ANTHONY GÓMEZ IV PRESENT AGE: 47 PATIENT ACCOUNT NO: [id number] : 69 LOCATION: [facility] ORDERING PHYSICIAN: Herminio PATEL SERVICE DATE: 07/30/18-1415 EXAM TYPE: CAT - CT HEAD WO IV CONTRAST EXAMINATION: CT HEAD WITHOUT CONTRAST CLINICAL INFORMATION: Headache. Cocaine user. COMPARISON: None TECHNIQUE: Contiguous axial imaging was performed from the skull base to vertex without intravenous administration of contrast. DLP: 600.57 mGy-cm FINDINGS: There is no evidence of acute intracranial hemorrhage or territorial infarction. No abnormal mass effect or midline shift is seen. [place] to white matter differentiation is well preserved. No extra-axial fluid collections are identified. The ventricles are normal in size. There is no abnormal attenuation within the brain parenchyma. The osseous structures and soft tissues are normal. The mastoid air cells and visualized portions of the paranasal sinuses are well aerated. IMPRESSION: No acute intracranial pathology. DICTATED BY: Gayle Gutierrez MD DATE/TIME DICTATED:01/28/181538 FIELD SPECIALIST:BAKARI DATE/TIME TRANSCRIBED:01/28/181538 CONFIDENTIAL, DO NOT COPY WITHOUT APPROPRIATE AUTHORIZATION. <Electronically signed in Other Vendor System> SIGNED BY: Gayle Gutierrez MD 01/28/18 1545 Initial ED EKG: SINUS TACHYCARDIA @127BPM, NONSPECIFIC ST CHANGES Prior EKG: unchanged (12/11/17) Repeat EKG: unchanged (resolved tachycardia) (Jammie Hamm) Departure Departure Disposition: LEFT AGAINST MEDICAL ADVICE Condition: Stable Clinical Impression Primary Impression: Cocaine abuse Secondary Impressions: Dyspnea Qualifiers: Dyspnea type: unspecified Qualified Code: R06.00 - Dyspnea, unspecified Headache Qualifiers: Headache type: unspecified Headache chronicity pattern: acute headache Intractability: not intractable Qualified Code: R51 - Headache Referrals: Tomas Harrell MD (PCP/Family) Departure Forms: Customer Survey General Discharge Information (Jammie Hamm) PA/ORDER PLANNER Co-Sign Statement Statement: ED Attending supervision documentation- [] I saw and evaluated the patient. I have also reviewed all the pertinent lab results and diagnostic results. I agree with the findings and the plan of care as documented in the PA's/ORDER PLANNER's documentation. [X] I have reviewed the ED Record and agree with the PA's/ORDER PLANNER's documentation. [] Additions or exceptions (if any) to the PAs/ORDER PLANNER's note and plan are summarized below: [] (Raleigh Quinteros DO) Critical Care Note Critical Care Note Critical Care Time: non-applicable (Chana PATEL,Jammie Morrison)
[2018-01-28 16:19] VITALS: BP 143/93
== END 2018-01-28 18:57 | disposition left against medical advice (07) ==
LOC: ERH 14:05
PROVIDERS: Physician Assistant Medical
DX: F14.10 Cocaine abuse, uncomplicated (principal); R06.00 Dyspnea, unspecified; R51 Headache; R00.0 Tachycardia, unspecified; I10 Essential (primary) hypertension; Z72.0 Tobacco use
CPT/HCPCS: 71046; 80307; 93005; 93010